=== PATIENT | male | born 1975 | race Caucasian/White ===

== ENCOUNTER → 2016-11-06 | Outpatient (CLI) | payer OTHER ==
[~2016-11-06] MED LIST: AMBI10TA PO; HYDRO50TAB PO; LUNE3TAB48 PO; MINI1CAP PO; PARO20TA2 PO; PARO40TA PO; PRAZ2CAP PO; Patient Own Medication PO
--- NOTE | 2016-11-06 08:33 | REP ---
MR THORACIC SPINE WITHOUT CONTRAST: HISTORY: Thoracic pain. There is no disc bulge or herniation. The spinal canal and the neural foramina are patent. The spinal cord is normal in signal intensity. There is no intradural extramedullary lesion. 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 Increased signal intensity on T2-weighted images is present in the endplates of several lower thoracic vertebral bodies. This represents degenerative change. IMPRESSION: There is no disc bulge or herniation. Signed by Curt Dailey MD 11/06/2016 08:34 A
== END ==
LOC: M RAD 06:54
PROVIDERS: ATTEND Anesthesiology
DX: Z01.818 Encounter for other preprocedural examination (principal); M54.6 Pain in thoracic spine

== ENCOUNTER → 2016-11-07 | Outpatient (CLI) | payer OTHER ==
--- NOTE | 2016-11-10 01:52 | ECWPNPC ---
PATIENT NAME: ALLY VILLANUEVA : 1975 GENDER: MALE VISIT DATE: 11/07/2016 DISCHARGE DATE: 11/07/16 0939 VISIT LOCKED DATE TIME: PHYSICIAN: ESTEBAN SCHNEIDER RESOURCE: ESTEBAN SCHNEIDER REASON FOR APPOINTMENT 1. LOW BACK PAIN HISTORY OF PRESENT ILLNESS HISTORY OF PRESENT ILLNESS: PAIN THE PATIENT DESCRIBES THE PAIN... 40 YEAR OLD MALE PATIENT WITH HISTORY OF CHRONIC LOW BACK PAIN. PATIENT DESCRIBES THE PAIN ACHING, TENDER, THROBBING, AND HAVING IT ALL THE TIME WITH A PAIN SCORE OF 7/10. PATIENT STATES THAT AT THIS TIME HE IS NOT TAKING ANYTHING FOR PAIN DUE TO TYLENOL AND IBUPROFEN NOT HELPING WITH THE PAIN. MR. VILLANUEVA IS GOING TO SEE DR. WARD ON November TO HAVE HIS PSYCHOLOGICAL EVALUATION DONE FOR THE DCS TRIAL. PATIENT EXPRESSES HE WOULD LIKE TO MOVE FORWARD WITH THE TRIAL SOON POSSIBLE HE IS IN CONSTANT PAIN AND HAS NOT FOUND RELIEF FROM ANYTHING AT THIS TIME. PATIENT DENIES UNEXPLAINABLE WEIGHT LOSS, FEVER, CHILLS, NEW CHANGES ON HIS URINARY OR BOWEL CONTROL. FALL RISK SCREENING: SCREENING :NO FALLS IN THE PAST YEAR CURRENT MEDICATIONS TAKING PRAZOSIN HCL 5 MG CAPSULE ORALLY ONCE A DAY AT BEDTIME, NOTES: 09/24/16 2100 TAKING LISINOPRIL 5 MG TABLET ORALLY DAILY, NOTES: 09/24/16 0600 TAKING GABAPENTIN 300 MG TABLET 1 TABLET ORALLY DAILY, NOTES: 09/24/16 2100 TAKING CYMBALTA 20 MG CAPSULE DELAYED RELEASE PARTICLES 2 CAPSULE ORALLY ONCE A DAY TAKING SEROQUEL 25 MG TABLET 1 TABLET ORALLY ONCE A DAY DISCONTINUED AMITRIPTYLINE HCL 25 MG TABLET 1 TABLET ORALLY ONCE A DAY AT BEDTIME DISCONTINUED CLONIDINE HCL ER 0.1 MG TABLET EXTENDED RELEASE 12 HOUR 1 TABLET AT BEDTIME ORALLY ONCE A DAY MEDICATION LIST REVIEWED AND RECONCILED WITH THE PATIENT PAST MEDICAL HISTORY HTN 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 SOCIAL HISTORY GENERAL: TOBACCO USE ARE YOU A:NONSMOKER LEARNING BARRIERS / SPECIAL NEEDS ORIENTED TO PLAN OF CARE: PATIENT, PAIN MANAGEMENT PATIENT, ORIENTED TO PLAN OF CARE: PATIENT, PAIN MANAGEMENT PATIENT. NEW PATIENT PAIN DIARY TODAY'S VISITNOTES FROM 0-10, WHAT LEVEL IS YOUR PAIN TODAY?0 PAIN CLINIC PFS, CLERGY, PUBLIC HEALTH REFERRALS PFS REFERRAL NEEDED?NO CLERGY REFERRAL NEEDED?NO PUBLIC HEALTH REFERRAL NEEDED?NO WAS THE PROVIDER NOTIFIED OF ANY PERTINENT INFO?NO PFS REFERRAL NEEDED?NO CLERGY REFERRAL NEEDED?NO PUBLIC HEALTH REFERRAL NEEDED?NO WAS THE PROVIDER NOTIFIED OF ANY PERTINENT INFO?NO HOSPITALIZATION/MAJOR DIAGNOSTIC PROCEDURE NO HOSPITALIZATION HISTORY. REVIEW OF SYSTEMS CONSTITUTIONAL: ANY CHANGE IN YOUR MEDICAL CONDITION? NO . CHILLS NO . FEVER NO . INFECTION: DO YOU HAVE NEW INFECTIONS? NO . DO YOU HAVE HISTORY OF MRSA? NO . MUSCULOSKELETAL: ANY NEW PATTERNS OF PAIN OR NUMBNESS? YES, TINGLING DOWN BOTH ARMS, RIGHT ARM IS WORSE. . GASTROENTEROLOGY: ANY NEW CHANGE IN BOWEL CONTROL? NO . GENITOURINARY: ANY NEW CHANGE IN BLADDER CONTROL? NO . IS THERE A CHANCE YOU COULD BE ? NO . HEMATOLOGY/LYMPH: DO YOU TAKE ANY BLOOD THINNERS? (FOR EXAMPLE- COUMADIN, PLAVIX, AGGRENOX, PLATEL, PRADAXA, OR XARELTO) NO . WHEN WAS YOUR LAST DOSE? DATE: TIME: . NEUROLOGY: HAVE YOU FALLEN IN THE PAST 6 MONTHS? NO . ANY NEW EXTREMITY NUMBNESS OR WEAKNESS? NO . CARDIOLOGY: DO YOU HAVE A PACEMAKER OR DEFIBRILLATOR? NO . RESPIRATORY: HAVE YOU BEEN SICK IN THE PAST WEEK? YES, HAD A COLD . FEVER NO . FLU LIKE SYMPTOMS? NO . COUGH NO . INTEGUMENTARY: DO YOU HAVE ANY RASHES OR OPEN SORES? NO . ALLERGIC/IMMUNO: ARE YOU ALLERGIC TO SHELLFISH OR IV DYE? NO . ANY NEW ALLERGIES? NO . PSYCHIATRIC: DO YOU HAVE THOUGHTS OF HURTING YOURSELF OR SOMEONE ELSE? NO . ARE YOU ABUSED, NEGLECTED, OR IN AN UNSAFE ENVIRONMENT? NO . ENDOCRINOLOGY: ARE YOU DIABETIC? NO . OTHER: DO YOU NEED ANY PRESCRIPTIONS? NO . IF YES, PLEASE LIST: ____ . ANY NEW PROBLEMS WITH YOUR MEDICATIONS? NO . WHEN DID YOU LAST EAT? ____ . WHEN DID YOU LAST DRINK? ____ . WHAT DID YOU LAST DRINK? ____ . NAME OF PERSON DRIVING YOU HOME? ____ . DO YOU HAVE ANY OTHER QUESTIONS OR CONCERNS YES, REALLY COULD USE SOMETHING FOR PAIN. . REVIEWED BY: PROVIDER: ESTEBAN SCHNEIDER MD . VITAL SIGNS WT 190 LBS, HT 65 IN, BMI 31.61 INDEX, BP 145/101 MM HG, HR 87 /MIN, RR 16 /MIN, TEMP 97.5 F, OXYGEN SAT % 96%, NA INITIALS SC 08:52, REVIEWED BY: CMRN IS AWARE OF PT'S BPPT STATES THAT HE IS ON MEDS. HAS BEEN SICK AND TAKING COLD MEDS. CM. EXAMINATION : PATIENT IS ALERT O X 3 AND COOPERATIVE. PATIENT HAS TENDERNESS IN THE LOWER BACK AND PARASPINAL MUSCLE GROUP AND IN THE CERVICAL AREA AND PARASPINAL MUSCLE GROUP. BANDS OF TISSUE, RESTRICTION OF MOVEMENT, AND MRI OF CERVICAL SPINE ON 12/12/14 SHOW DISC PROTRUSIONS AND STENOSIS AT C5-C6 AND C6-C7. MRI OF THE LUMBAR SPINE DONE ON 03/08/16 SHOW DISC BULGE AT L4-L5. THORACIC MRI DONE ON 11/06/15 SHOWS ADEQUATE ROOM FOR THE LEADS TO PASS THROUGH. ASSESSMENTS INTERVERTEBRAL DISC DISORDERS WITH RADICULOPATHY, LUMBAR REGION - M51.16 (PRIMARY) MYALGIA - M79.1 TREATMENT INTERVERTEBRAL DISC DISORDERS WITH RADICULOPATHY, LUMBAR REGION START CELEBREX CAPSULE, 200 MG, 1 CAPSULE, ORALLY, ONCE A DAY FOR PAIN, 30 DAY(S), 30, REFILLS 0 NOTES: TRIGGER POINT INJECTION MATERIAL WAS PRINTED,TRIGGER POINT INJECTION: YOUR EXPERIENCE MATERIAL WAS PRINTED. CLINICAL NOTES: WE DISCUSSED SEVERAL ISSUES WITH MR. VILLANUEVA'S PAIN MANAGEMENT CASE. AT THIS TIME THE PATIENT WILL BEGIN USING CELEBREX TO AID IN PAIN RELIEF, PATIENT WAS ADVISED TO STOP THE MEDICATION IF IT DOES NOT AID IN PAIN RELIEF. I WOULD LIKE TO SPEAK WITH THE PATIENT'S BEHAVIORAL HEALTH DOCTOR TO DISCUSS INCREASING THE CYMBALTA TO 30 MG TWICE A DAY AND INCREASING THE GABAPENTIN TO AID IN PAIN RELIEF. WE WILL ALSO BE MOVING FORWARD WITH THE DCS TRIAL. AT THIS TIME WE ARE JUST WAITING FOR THE PATIENT TO RECEIVE A PSYCHOLOGICAL EVALUATION. DUE TO THE SPASTICITY AND TIGHTNESS IN THE PATIENT'S BACK I BELIEVE THE PATIENT WOULD BENEFIT FROM TRIGGER POINT INJECTIONS. WE DISCUSSED THE RISKS, BENEFITS, AND ALTNERATIVES TO THE INJECTION AND THE PATIENT WOULD LIKE TO PROCEED. PATIENT WILL RETURN TO THE CLINIC IN 3 WEEKS TO FURTHER DISCUSS MEDICATIONS. INSTRUCTIONS WERE GIVEN, QUESTIONS WERE ANSWERED, PATIENT REPORTS UNDERSTANDING AND AGREES WITH THE PLAN. I, KANDI OWENS, DOCUMENTED THE ABOVE INFORMATION ACTING A SCRIBE FOR DR. SCHNEIDER. I HAVE REVIEWED THE ABOVE DOCUMENT, WRITTEN BY KANDI SHAMPINE SCRIBE AND I VERIFY THAT IT IS ACCURATE. PREVENTIVE MEDICINE PAIN CLINIC TEACHING: MEDICATIONS PT DECLINED INFORMATION ON CELEBREX. PROCEDURE CODES FA211 ESTABILISHED PATIENT [facility] FACILITY CHARGE G8427 DOC MEDS VERIFIED W/PT OR RE G6530 PAIN ASSESS POS TOOL F/U PLAN DOC FOLLOW UP 3 WEEKS ELECTRONICALLY SIGNED BY ESTEBAN SCHNEIDER MD ON 11/09/2016 AT 06:53 PM EST DISCLAIMER : THIS IS A VISIT SUMMARY EXTRACTED FROM THE [employer] CHART. IT IS NOT A COPY OF THE [employer] PROGRESS NOTE. BRYON
== END ==
LOC: M PAIN 08:40
PROVIDERS: ATTEND Anesthesiology
DX: Z09 Encounter for follow-up examination after completed treatment for conditions other than malignant neoplasm (principal); G89.29 Other chronic pain; M51.16 Intervertebral disc disorders with radiculopathy, lumbar region; M79.1 Myalgia; I10 Essential (primary) hypertension; G56.20 Lesion of ulnar nerve, unspecified upper limb; R51 Headache; M54.2 Cervicalgia; G47.30 Sleep apnea, unspecified; F43.10 Post-traumatic stress disorder, unspecified; F41.9 Anxiety disorder, unspecified; F32.9 Major depressive disorder, single episode, unspecified; Z88.8 Allergy status to other drugs, medicaments and biological substances; Z79.899 Other long term (current) drug therapy

== ENCOUNTER → 2016-11-27 | Outpatient (CLI) | payer OTHER ==
--- NOTE | 2016-12-05 01:44 | ECWPNPC ---
PATIENT NAME: ALYL VILLANUEVA : 1975 GENDER: MALE VISIT DATE: 11/27/2016 DISCHARGE DATE: 11/27/16 1449 VISIT LOCKED DATE TIME: PHYSICIAN: ESTEBAN SCHNEIDER RESOURCE: ESTEBAN SCHNEIDER REASON FOR APPOINTMENT 1. BACK HISTORY OF PRESENT ILLNESS HISTORY OF PRESENT ILLNESS: PAIN THE PATIENT DESCRIBES THE PAIN... 41 YEAR OLD MALE PATIENT WITH HISTORY OF CHRONIC BACK PAIN. PATIENT DESCRIBES THE PAIN HAVING IT ALL THE TIME WITH A PAIN SCORE OF 7/10. PATIENT STATES THAT HE SLEEP BETTER BUT IS STILL WAKING UP AT NIGHT. PATIENT REPORTS THAT HE HAS AN UP COMING APPOINTMENT WITH DR. WARD ON TO HAVE HIS PSYCHOLOGICAL EVALUATION COMPLETED FOR THE DCS TRIAL. PATIENT EXPRESSED THAT HE WOULD LIKE TO MOVE FORWARD WITH THE TRIAL HE IS IN CONSTANT PAIN AND HAS NOT FOUND RELIEF FROM ANYTHING AT THIS TIME. PATIENT DENIES UNEXPLAINABLE WEIGHT LOSS, FEVER, CHILLS, NEW CHANGES ON HIS URINARY OR BOWEL CONTROL. 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 NEW PATIENT PAIN DIARY TODAY'S VISITNOTES FROM 0-10, WHAT LEVEL IS YOUR PAIN TODAY?0 PAIN CLINIC PFS, CLERGY, PUBLIC HEALTH REFERRALS PFS REFERRAL NEEDED?NO CLERGY REFERRAL NEEDED?NO PUBLIC HEALTH REFERRAL NEEDED?NO WAS THE PROVIDER NOTIFIED OF ANY PERTINENT INFO?NO PFS REFERRAL NEEDED?NO CLERGY REFERRAL NEEDED?NO PUBLIC HEALTH REFERRAL NEEDED?NO WAS THE PROVIDER NOTIFIED OF ANY PERTINENT INFO?NO REVIEW OF SYSTEMS CONSTITUTIONAL: ANY CHANGE IN YOUR MEDICAL CONDITION? NO . CHILLS NO . FEVER NO . INFECTION: DO YOU HAVE NEW INFECTIONS? NO . DO YOU HAVE HISTORY OF MRSA? NO . MUSCULOSKELETAL: ANY NEW PATTERNS OF PAIN OR NUMBNESS? YES PT REPORTS INCREASED IN BOTH INTENSITY AND DURATION OF LOWER BACK PAIN, AND EXTENDS THROUGH BUTTOCKS NOW . GASTROENTEROLOGY: ANY NEW CHANGE IN BOWEL CONTROL? NO . GENITOURINARY: ANY NEW CHANGE IN BLADDER CONTROL? NO . IS THERE A CHANCE YOU COULD BE ? NO . HEMATOLOGY/LYMPH: DO YOU TAKE ANY BLOOD THINNERS? (FOR EXAMPLE- COUMADIN, PLAVIX, AGGRENOX, PLATEL, PRADAXA, OR XARELTO) NO . WHEN WAS YOUR LAST DOSE? DATE: TIME: . NEUROLOGY: HAVE YOU FALLEN IN THE PAST 6 MONTHS? NO . ANY NEW EXTREMITY NUMBNESS OR WEAKNESS? NO . CARDIOLOGY: DO YOU HAVE A PACEMAKER OR DEFIBRILLATOR? NO . RESPIRATORY: HAVE YOU BEEN SICK IN THE PAST WEEK? NO . FEVER NO . FLU LIKE SYMPTOMS? NO . COUGH NO . INTEGUMENTARY: DO YOU HAVE ANY RASHES OR OPEN SORES? NO . ALLERGIC/IMMUNO: ARE YOU ALLERGIC TO SHELLFISH OR IV DYE? NO . ANY NEW ALLERGIES? NO . PSYCHIATRIC: DO YOU HAVE THOUGHTS OF HURTING YOURSELF OR SOMEONE ELSE? NO . ARE YOU ABUSED, NEGLECTED, OR IN AN UNSAFE ENVIRONMENT? NO . ENDOCRINOLOGY: ARE YOU DIABETIC? NO . OTHER: DO YOU NEED ANY PRESCRIPTIONS? NO . IF YES, PLEASE LIST: ____ . ANY NEW PROBLEMS WITH YOUR MEDICATIONS? NO . WHEN DID YOU LAST EAT? ____ . WHEN DID YOU LAST DRINK? ____ . WHAT DID YOU LAST DRINK? ____ . NAME OF PERSON DRIVING YOU HOME? ____ . DO YOU HAVE ANY OTHER QUESTIONS OR CONCERNS NO . REVIEWED BY: PROVIDER: . VITAL SIGNS WT 198.4 LBS, HT 65 IN, BMI 33.01 INDEX, BP 125/83 MM HG, HR 83 /MIN, RR 16 /MIN, TEMP 98.8 F, OXYGEN SAT % 93%, SAFE IN ENV? (Y/N) YES, NA INITIALS SC13:[id number], REVIEWED BY: MYLES. EXAMINATION : PATIENT IS ALERT O X 3 AND COOPERATIVE. PATIENT HAS TENDERNESS IN THE LOWER BACK AND PARASPINAL MUSCLE GROUP AND IN THE CERVICAL AREA AND PARASPINAL MUSCLE GROUP. BANDS OF TISSUE, RESTRICTION OF MOVEMENT, AND MRI OF CERVICAL SPINE ON 12/12/14 SHOW DISC PROTRUSIONS AND STENOSIS AT C5-C6 AND C6-C7. MRI OF THE LUMBAR SPINE DONE ON 03/08/16 SHOW DISC BULGE AT L4-L5. THORACIC MRI DONE ON 11/06/15 SHOWS ADEQUATE ROOM FOR THE LEADS TO PASS THROUGH. ASSESSMENTS INTERVERTEBRAL DISC DISORDERS WITH RADICULOPATHY, LUMBAR REGION - M51.16 (PRIMARY) MYALGIA - M79.1 TREATMENT INTERVERTEBRAL DISC DISORDERS WITH RADICULOPATHY, LUMBAR REGION NOTES: WE DISCUSSED SEVERAL ISSUES WITH MR. VILLANUEVA'S PAIN MANAGEMENT CASE. AT THIS TIME THE PATIENT WILL START ON TIZANIDINE FOR HIS MUSCLE SPASM. WE WILL ALSO BE MOVING FORWARD WITH THE DCS TRIAL. AT THIS TIME WE ARE JUST WAITING FOR THE PATIENT TO RECEIVE A PSYCHOLOGICAL EVALUATION. DUE TO THE SPASTICITY AND TIGHTNESS IN THE PATIENT'S BACK I BELIEVE THE PATIENT WOULD BENEFIT FROM TRIGGER POINT INJECTIONS. WE DISCUSSED THE RISKS, BENEFITS, AND ALTERNATIVES TO THE INJECTION AND THE PATIENT WOULD LIKE TO PROCEED. PATIENT TO FOLLOW UP WITH ME IN 2 TO 3 WEEKS FOR HIS MEDICATIONS. INSTRUCTIONS WERE GIVEN, QUESTIONS WERE ANSWERED, PATIENT REPORTS UNDERSTANDING AND AGREES WITH THE PLAN. I, SHAREE GUERRERO, DOCUMENTED THE ABOVE INFORMATION ACTING A SCRIBE FOR DR. SCHNEIDER. I HAVE REVIEWED THE ABOVE DOCUMENT, WRITTEN BY SHAREE GUERRERO SCRIBJas AND I VERIFY THAT IT IS ACCURATE. OTHERS START TIZANIDINE HCL TABLET, 2 MG, 1 TABLET NEEDED, ORALLY FOR SPASMSM AND PAIN, THREE TIMES A DAY, 30 DAY(S), 90 TABLET, REFILLS 1 PROCEDURE CODES FA211 ESTABILISHED PATIENT [facility] FACILITY CHARGE G8730 PAIN ASSESS POS TOOL F/U PLAN DOC G8427 DOC MEDS VERIFIED W/PT OR RE FOLLOW UP 2 WEEKS ELECTRONICALLY SIGNED BY ESTEBAN SCHNEIDER MD ON 12/04/2016 AT 01:42 PM EST DISCLAIMER : THIS IS A VISIT SUMMARY EXTRACTED FROM THE [employer] CHART. IT IS NOT A COPY OF THE [employer] PROGRESS NOTE. MTDD
== END ==
LOC: M PAIN 10:00
PROVIDERS: ATTEND Anesthesiology
DX: Z09 Encounter for follow-up examination after completed treatment for conditions other than malignant neoplasm (principal); G89.29 Other chronic pain; M51.16 Intervertebral disc disorders with radiculopathy, lumbar region; M79.1 Myalgia; I10 Essential (primary) hypertension; R51 Headache; G47.30 Sleep apnea, unspecified; F43.10 Post-traumatic stress disorder, unspecified; F41.9 Anxiety disorder, unspecified; F32.9 Major depressive disorder, single episode, unspecified; Z88.5 Allergy status to narcotic agent; Z79.899 Other long term (current) drug therapy

== ENCOUNTER → 2016-12-10 | Outpatient (CLI) | payer OTHER ==
--- NOTE | 2016-12-12 00:33 | ECWPNPC ---
PATIENT NAME: ALLY VILLANUEVA : 1975 GENDER: MALE VISIT DATE: 12/10/2016 DISCHARGE DATE: 12/10/16 1110 VISIT LOCKED DATE TIME: PHYSICIAN: ESTEBAN SCHNEIDER RESOURCE: ESTEBAN SCHNEIDER REASON FOR APPOINTMENT 1. BACK PAIN HISTORY OF PRESENT ILLNESS HISTORY OF PRESENT ILLNESS: PAIN THE PATIENT DESCRIBES THE PAIN... 41 YEAR OLD MALE PATIENT WITH HISTORY OF CHRONIC BACK PAIN. PATIENT DESCRIBES THE PAIN BURNING, SHARP, STABBING, AND HAVING IT ALL THE TIME WITH A PAIN SCORE OF 8/10. PATIENT STATES THAT HE SNEEZED ON SATURDAY NIGHT AND HEARD HIS BACK POP AND SINCE THEN HE HAS BEEN IN SEVERE PAIN. PATIENT IS UNABLE TO STAND UP STRAIGHT BECAUSE HE STATES IF HE DOES HIS BACK WILL LOCK UP. PATIENT ALSO STATES HAVING A NEW PAIN IN THE FRONT OF THE LEFT LEG. MR. VILLANUEVA IS NOT USING ANY MEDICATION TO AID IN PAIN RELIEF DUE TO NOT AIDING IN PAIN RELIEF. MR. VILLANUEVA REPORTS HAVING HIS PSYCHOLOGICAL EVALUATION DONE RECENTLY. PATIENT DENIES UNEXPLAINABLE WEIGHT LOSS, FEVER, CHILLS, NEW CHANGES ON HIS URINARY OR BOWEL CONTROL. FALL RISK SCREENING: SCREENING :NO FALLS IN THE PAST YEAR CURRENT MEDICATIONS TAKING PRAZOSIN HCL 5 MG CAPSULE 2 CAPSULES ORALLY ONCE A DAY AT BEDTIME, NOTES: 09/24/16 2100 TAKING LISINOPRIL 10 MG TABLET ORALLY DAILY, NOTES: 09/24/16 0600 TAKING GABAPENTIN 600 MG TABLET 1 TABLET ORALLY TWICE A DAY, NOTES: 09/24/16 2100 TAKING CYMBALTA 60 MG CAPSULE DELAYED RELEASE PARTICLES 1 CAPSULE ORALLY ONCE A DAY TAKING SEROQUEL 25 MG TABLET 1 TABLET ORALLY ONCE A DAY TAKING CELEBREX 200 MG CAPSULE 1 CAPSULE ORALLY ONCE A DAY FOR PAIN NOT-TAKING TIZANIDINE HCL 2 MG TABLET 1 TABLET NEEDED ORALLY FOR SPASMSM AND PAIN THREE TIMES A DAY MEDICATION LIST REVIEWED AND RECONCILED WITH THE PATIENT PAST MEDICAL HISTORY HTN 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 SOCIAL HISTORY GENERAL: TOBACCO USE ARE YOU A:NONSMOKER LEARNING BARRIERS / SPECIAL NEEDS ORIENTED TO PLAN OF CARE: PATIENT, PAIN MANAGEMENT PATIENT, ORIENTED TO PLAN OF CARE: PATIENT, PAIN MANAGEMENT PATIENT. NEW PATIENT PAIN DIARY TODAY'S VISITNOTES FROM 0-10, WHAT LEVEL IS YOUR PAIN TODAY?0 PAIN CLINIC PFS, CLERGY, PUBLIC HEALTH REFERRALS PFS REFERRAL NEEDED?NO CLERGY REFERRAL NEEDED?NO PUBLIC HEALTH REFERRAL NEEDED?NO WAS THE PROVIDER NOTIFIED OF ANY PERTINENT INFO?NO PFS REFERRAL NEEDED?NO CLERGY REFERRAL NEEDED?NO PUBLIC HEALTH REFERRAL NEEDED?NO WAS THE PROVIDER NOTIFIED OF ANY PERTINENT INFO?NO HOSPITALIZATION/MAJOR DIAGNOSTIC PROCEDURE DENIES PAST HOSPITALIZATION REVIEW OF SYSTEMS CONSTITUTIONAL: ANY CHANGE IN YOUR MEDICAL CONDITION? NO . CHILLS NO . FEVER NO . INFECTION: DO YOU HAVE NEW INFECTIONS? NO . DO YOU HAVE HISTORY OF MRSA? NO . MUSCULOSKELETAL: ANY NEW PATTERNS OF PAIN OR NUMBNESS? YES,SNEEZED ON SATURDAY, BACK &QUOT;POPPED&QUOT;, PAIN MUCH WORSE AND DOWN LEFT LEG SINCE THEN . GASTROENTEROLOGY: ANY NEW CHANGE IN BOWEL CONTROL? NO . GENITOURINARY: ANY NEW CHANGE IN BLADDER CONTROL? NO . IS THERE A CHANCE YOU COULD BE ? NO . HEMATOLOGY/LYMPH: DO YOU TAKE ANY BLOOD THINNERS? (FOR EXAMPLE- COUMADIN, PLAVIX, AGGRENOX, PLATEL, PRADAXA, OR XARELTO) NO . WHEN WAS YOUR LAST DOSE? DATE: TIME: . NEUROLOGY: HAVE YOU FALLEN IN THE PAST 6 MONTHS? NO . ANY NEW EXTREMITY NUMBNESS OR WEAKNESS? NO . CARDIOLOGY: DO YOU HAVE A PACEMAKER OR DEFIBRILLATOR? NO . RESPIRATORY: HAVE YOU BEEN SICK IN THE PAST WEEK? NO . FEVER NO . FLU LIKE SYMPTOMS? NO . COUGH NO . INTEGUMENTARY: DO YOU HAVE ANY RASHES OR OPEN SORES? NO . ALLERGIC/IMMUNO: ARE YOU ALLERGIC TO SHELLFISH OR IV DYE? NO . ANY NEW ALLERGIES? NO . PSYCHIATRIC: DO YOU HAVE THOUGHTS OF HURTING YOURSELF OR SOMEONE ELSE? NO . ARE YOU ABUSED, NEGLECTED, OR IN AN UNSAFE ENVIRONMENT? NO . ENDOCRINOLOGY: ARE YOU DIABETIC? NO . OTHER: DO YOU NEED ANY PRESCRIPTIONS? YES, MUSCLES RELAXERS NOT WORKING . IF YES, PLEASE LIST: ____ . ANY NEW PROBLEMS WITH YOUR MEDICATIONS? NO . WHEN DID YOU LAST EAT? ____ . WHEN DID YOU LAST DRINK? ____ . WHAT DID YOU LAST DRINK? ____ . NAME OF PERSON DRIVING YOU HOME? ____ . DO YOU HAVE ANY OTHER QUESTIONS OR CONCERNS NO . REVIEWED BY: PROVIDER: ESTEBAN SCHNEIDER MD . VITAL SIGNS WT 199.4 LBS, HT 65 IN, BMI 33.18 INDEX, BP 142/89 MM HG, HR 110 /MIN, RR 18 /MIN, TEMP 98.4 F, OXYGEN SAT % 94%, NA INITIALS SC10:20, REVIEWED BY: LS. EXAMINATION : PATIENT IS ALERT O X 3 AND COOPERATIVE. MR. VILLANUEVA UNABLE TO STRAIGHTEN BACK AND STAYS IN A FLEXED POSITION. PATIENT HAS TENDERNESS IN THE LOWER BACK AND PARASPINAL MUSCLE GROUP AND IN THE CERVICAL AREA AND PARASPINAL MUSCLE GROUP. BANDS OF TISSUE, RESTRICTION OF MOVEMENT, AND PRESENCE OF TRIGGER POINTS IN THE BACK. ALSO TENDERNESS AT THE RIGHT AND LEFT SACROILIAC JOINTS. LEFT LEG IS WEAKER THEN THE RIGHT AT EXTENSION AND FLEXION. MRI OF CERVICAL SPINE ON 12/12/14 SHOW DISC PROTRUSIONS AND STENOSIS AT C5-C6 AND C6-C7. MRI OF THE LUMBAR SPINE DONE ON 03/08/16 SHOW DISC BULGE AT L4-L5. THORACIC MRI DONE ON 11/06/15 SHOWS ADEQUATE ROOM FOR THE LEADS TO PASS THROUGH. 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 VILLANUEVA'S PAIN MANAGEMENT CASE. AT THIS TIME THE PATIENT WILL USE TORODOL AND SOMA FOR THE NEXT FIVE DAYS DUE TO THE SEVERE PAIN AND MUSCLE SPASMS. PATIENT DENIES ABUSE OF ANY MEDICATION, DENIES USE OF ILLEGAL SUBSTANCES, AND STATES THAT HE IS ONLY USING THE MEDICATION FOR PAIN MANAGEMENT. PATIENT WILL BE RECEIVING TRIGGER POINT INJECTIONS TOMORROW WHICH SHOULD AID IN PAIN RELIEF FOR THE PATIENT WELL. I WOULD LIKE THE PATIENT TO RETURN TO THE CLINIC IN 1 WEEK TO SEE PABLO ROWLAND IF THE PAIN IS STILL SEVERE. AT THAT POINT A MRI MAY BENEFIT THE PATIENT DUE TO SNEEZING CAUSING THE PATIENT NEW PAIN. WE DISCUSSED THE RISKS, BENEFITS, AND ALTERNATIVES OF THE INJECTION AND THE PATIENT WOULD LIKE TO PROCEED AT THIS TIME. I MAY CONSIDER A BILATERAL SACROILIAC JOINT BLOCK. INSTRUCTIONS WERE GIVEN, QUESTIONS WERE ANSWERED, PATIENT REPORTS UNDERSTANDING AND AGREES WITH THE PLAN. MR. VILLANUEVA RECEIVED A PSYCHOLOGICAL EVALUATION AND ONCE I REVIEW THE NOTES I WILL REQUEST AUTHORIZATION FOR THE DCS TRIAL. I, KANDI OWENS, DOCUMENTED THE ABOVE INFORMATION ACTING A SCRIBE FOR DR. SCHNEIDER. I HAVE REVIEWED THE ABOVE DOCUMENT, WRITTEN BY KANDI BRARIBJas AND I VERIFY THAT IT IS ACCURATE. PROCEDURE CODES FA211 ESTABILISHED PATIENT [facility] FACILITY CHARGE G8427 DOC MEDS VERIFIED W/PT OR RE G8730 PAIN ASSESS POS TOOL F/U PLAN DOC FOLLOW UP TPI ELECTRONICALLY SIGNED BY ESTEBAN SCHNEIDER MD ON 12/11/2016 AT 01:10 PM EST DISCLAIMER : THIS IS A VISIT SUMMARY EXTRACTED FROM THE [employer] CHART. IT IS NOT A COPY OF THE [employer] PROGRESS NOTE. BRYON
== END ==
LOC: M PAIN 10:20
PROVIDERS: ATTEND Anesthesiology
DX: M51.16 Intervertebral disc disorders with radiculopathy, lumbar region (principal); M46.1 Sacroiliitis, not elsewhere classified; M54.2 Cervicalgia; G89.29 Other chronic pain; Z79.899 Other long term (current) drug therapy; I10 Essential (primary) hypertension; F43.10 Post-traumatic stress disorder, unspecified; F41.9 Anxiety disorder, unspecified; F32.9 Major depressive disorder, single episode, unspecified; R51 Headache; Z88.6 Allergy status to analgesic agent

== ENCOUNTER → 2016-12-11 | Outpatient (CLI) | payer OTHER ==
[~2016-12-11] MED LIST changes: +BUPIVACAINE HCL 0.25% 10 ML VIAL As Ordered ONE; +BUPIVACAINE HCL 0.25% 30 ML VIAL As Ordered ONE; +TRIAMCINOLONE ACETONIDE SUSP 40 MG/ML VIAL (J3301) As Ordered ONE; +diazePAM 5 MG TAB As Ordered ONE; +oxyCODONE 5MG TAB As Ordered ONE
--- NOTE | 2016-12-15 23:31 | ECWPNPC ---
PATIENT NAME: ALLY VILLANUEVA : 1975 GENDER: MALE VISIT DATE: 12/11/2016 DISCHARGE DATE: 12/11/16 1316 VISIT LOCKED DATE TIME: PHYSICIAN: ESTEBAN SCHNEIDER RESOURCE: ESTEBAN SCHNEIDER REASON FOR APPOINTMENT 1. TPI HISTORY OF PRESENT ILLNESS HISTORY OF PRESENT ILLNESS: PAIN THE PATIENT DESCRIBES THE PAIN... FALL RISK SCREENING: SCREENING :NO FALLS IN THE PAST YEAR CURRENT MEDICATIONS TAKING PRAZOSIN HCL 5 MG CAPSULE 2 CAPSULES ORALLY ONCE A DAY AT BEDTIME, NOTES: 12/10/16 1900 TAKING LISINOPRIL 10 MG TABLET ORALLY DAILY, NOTES: 12/11/16 0700 TAKING GABAPENTIN 600 MG TABLET 1 TABLET ORALLY TWICE A DAY, NOTES: 12/11/16 0700 TAKING CYMBALTA 60 MG CAPSULE DELAYED RELEASE PARTICLES 1 CAPSULE ORALLY ONCE A DAY, NOTES: 0700 TAKING SEROQUEL 25 MG TABLET 1 TABLET ORALLY ONCE A DAY, NOTES: 12/10/16 1900 TAKING SOMA 350 MG TABLET 1 TABLET NEEDED ORALLY Q 6 HRS PRN FOR SPASMS AND PAIN MDD4, NOTES: 12/10/16 1700 TAKING KETOROLAC TROMETHAMINE 10 MG TABLET 1 TABLET WITH FOOD OR MILK NEEDED ORALLY EVERY 6 HRS PRN FOR PAIN MDD4, NOTES: 12/10/16 1800 NOT-TAKING CELEBREX 200 MG CAPSULE 1 CAPSULE ORALLY ONCE A DAY FOR PAIN NOT-TAKING TIZANIDINE HCL 2 MG TABLET 1 TABLET NEEDED ORALLY FOR SPASMSM AND PAIN THREE TIMES A DAY MEDICATION LIST REVIEWED AND RECONCILED WITH THE PATIENT PAST MEDICAL HISTORY HTN 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 LEARNING BARRIERS / SPECIAL NEEDS ORIENTED TO PLAN OF CARE: PATIENT, PAIN MANAGEMENT PATIENT, ORIENTED TO PLAN OF CARE: PATIENT, PAIN MANAGEMENT PATIENT. NEW PATIENT PAIN DIARY TODAY'S VISITNOTES FROM 0-10, WHAT LEVEL IS YOUR PAIN TODAY?0 PAIN CLINIC PFS, CLERGY, PUBLIC HEALTH REFERRALS PFS REFERRAL NEEDED?NO CLERGY REFERRAL NEEDED?NO PUBLIC HEALTH REFERRAL NEEDED?NO WAS THE PROVIDER NOTIFIED OF ANY PERTINENT INFO?NO PFS REFERRAL NEEDED?NO CLERGY REFERRAL NEEDED?NO PUBLIC HEALTH REFERRAL NEEDED?NO WAS THE PROVIDER NOTIFIED OF ANY PERTINENT INFO?NO REVIEW OF SYSTEMS CONSTITUTIONAL: ANY CHANGE IN YOUR MEDICAL CONDITION? NO . CHILLS NO . FEVER NO . INFECTION: DO YOU HAVE NEW INFECTIONS? NO . DO YOU HAVE HISTORY OF MRSA? NO . MUSCULOSKELETAL: ANY NEW PATTERNS OF PAIN OR NUMBNESS? NO . GASTROENTEROLOGY: ANY NEW CHANGE IN BOWEL CONTROL? NO . GENITOURINARY: ANY NEW CHANGE IN BLADDER CONTROL? NO . IS THERE A CHANCE YOU COULD BE ? NO . HEMATOLOGY/LYMPH: DO YOU TAKE ANY BLOOD THINNERS? (FOR EXAMPLE- COUMADIN, PLAVIX, AGGRENOX, PLATEL, PRADAXA, OR XARELTO) NO . WHEN WAS YOUR LAST DOSE? DATE: TIME: . NEUROLOGY: HAVE YOU FALLEN IN THE PAST 6 MONTHS? NO . ANY NEW EXTREMITY NUMBNESS OR WEAKNESS? NO . CARDIOLOGY: DO YOU HAVE A PACEMAKER OR DEFIBRILLATOR? NO . RESPIRATORY: HAVE YOU BEEN SICK IN THE PAST WEEK? NO . FEVER NO . FLU LIKE SYMPTOMS? NO . COUGH NO . INTEGUMENTARY: DO YOU HAVE ANY RASHES OR OPEN SORES? NO . ALLERGIC/IMMUNO: ARE YOU ALLERGIC TO SHELLFISH OR IV DYE? NO . ANY NEW ALLERGIES? NO . PSYCHIATRIC: DO YOU HAVE THOUGHTS OF HURTING YOURSELF OR SOMEONE ELSE? NO . ARE YOU ABUSED, NEGLECTED, OR IN AN UNSAFE ENVIRONMENT? NO . ENDOCRINOLOGY: ARE YOU DIABETIC? NO . OTHER: DO YOU NEED ANY PRESCRIPTIONS? NO . IF YES, PLEASE LIST: ____ . ANY NEW PROBLEMS WITH YOUR MEDICATIONS? NO . WHEN DID YOU LAST EAT? ____12/10/161999 . WHEN DID YOU LAST DRINK? ____12/11/16 0945 . WHAT DID YOU LAST DRINK? ____WATER . NAME OF PERSON DRIVING YOU HOME? ____WIFE, DAHIANA . DO YOU HAVE ANY OTHER QUESTIONS OR CONCERNS NO . REVIEWED BY: PROVIDER: . VITAL SIGNS WT 199.4 LBS, HT 65 IN, BMI 33.18 INDEX, BP 158/89 MM HG, HR 82 /MIN, RR 16 /MIN, TEMP 97.3 F, OXYGEN SAT % 93%, NA INITIALS SC11:08, REVIEWED BY: AD. ASSESSMENTS MYALGIA - M79.1 (PRIMARY) PROCEDURES PN TRIGGER POINT INJECTION WITH STEROIDS PRE PROCEDURE DIAGNOSIS 1. MYALGIA 2. PAIN AT BILATERAL LOW BACK AREA POST PROCEDURE DIAGNOSIS 1. MYALGIA 2. PAIN AT BILATERAL LOW BACK AREA PROCEDURE TRIGGER POINT INJECTION AT BILATERAL LOW BACK AREA SURGEON DR. ESTEBAN SCHNEIDER SALMON TROLL FISHER NONE ANESTHESIA LOCAL PRE PROCEDURE NOTE THE PATIENT HAS A HISTORY OF CHRONIC PAIN AT THE RIGHT AND LEFT LOW BACK AREA. I EVALUATE THE PATIENT AND REVIEWED THE CHART. THERE IS EVIDENCE OF BANDS OF TISSUE WITH RESTRICTION OF MOVEMENT AND PRESENCE OF TRIGGER POINT AT THE AFFECTED AREA. I WENT OVER THE RISKS, ALTERNATIVES, AND BENEFITS ASSOCIATED WITH THIS PROCEDURE. THE PATIENT WOULD LIKE TO PROCEED AND GIVE CONSENT TO PERFORMED THE PROCEDURE. THE PATIENT DENIES UNEXPLAINABLE WEIGHT LOSS, FEVER, CHILLS, OR NEW CHANGES IN URINARY OR BOWEL CONTROL DESCRIPTION OF PROCEDURE THE PATIENT WAS BROUGHT TO THE PROCEDURE ROOM AND PLACED IN THE SITTING POSITION. THE AREA WAS CLEANED WITH ALCOHOL. THE PROCEDURE WAS DONE USING ASEPTIC STERILE TECHNIQUE. I CHECKED LATERALITY AND THE LEVEL WHERE THE PROCEDURE WAS GOING TO BE PERFORMED WITH THE PATIENT AND THE SUPPORTING STAFF AT THE MOMENT OF THE TIME OUT IN THE PROCEDURE ROOM. USING A 25-GAUGE NEEDLE, TRIGGER POINTS WERE INJECTED AT THE RIGHT AND LEFT LOW BACK AREA WITH A TOTAL OF 40 ML OF BUPIVACAINE 0.25% AND KENALOG 40 MG. THERE WAS NO EVIDENCE OF BLOOD, PARESTHESIA OR CEREBROSPINAL FLUID DURING THE PROCEDURE. THE PATIENT WAS SENT TO THE RECOVERY ROOM. THE PATIENT WAS MOVING THE EXTREMITIES AND DOING WELL. THERE WAS NO COMPLICATION DURING THE PROCEDURE POST PROCEDURE NOTE THE PATIENT WILL BE SEEN IN A FOLLOW UP IN THE NEXT FEW WEEKS. INSTRUCTIONS WERE GIVEN, QUESTIONS WERE ANSWERED, AND THE PATIENT EXPRESSED UNDERSTANDING AND AGREES WITH THE PLAN. INSTRUCTIONS WERE GIVEN, QUESTIONS WERE ANSWERED, PATIENT REPORTS UNDERSTANDING AND AGREES WITH THE PLAN. I, SHAREE GUERRERO, DOCUMENTED THE ABOVE INFORMATION ACTING A SCRIBE FOR DR. SCHNEIDER. I HAVE REVIEWED THE ABOVE DOCUMENT, WRITTEN BY SHAREE GUERRERO SCRIBJas AND I VERIFY THAT IT IS ACCURATE. PROCEDURE CODES 70852 INJ TRIGGER POINT /2 [facility] DISPOSITION & COMMUNICATION FOLLOW UP 3 WEEKS ELECTRONICALLY SIGNED BY ESTEBAN SCHNEIDER MD ON 12/15/2016 AT 09:17 PM EST DISCLAIMER : THIS IS A VISIT SUMMARY EXTRACTED FROM THE [employer] CHART. IT IS NOT A COPY OF THE [employer] PROGRESS NOTE. [facility]
== END ==
LOC: M PAIN 10:20
PROVIDERS: ATTEND Anesthesiology
DX: G89.29 Other chronic pain (principal); M54.5 Low back pain; M79.1 Myalgia; I10 Essential (primary) hypertension; G56.20 Lesion of ulnar nerve, unspecified upper limb; G54.0 Brachial plexus disorders; G47.30 Sleep apnea, unspecified; F43.10 Post-traumatic stress disorder, unspecified; F17.220 Nicotine dependence, chewing tobacco, uncomplicated; F41.9 Anxiety disorder, unspecified; F32.9 Major depressive disorder, single episode, unspecified; Z79.899 Other long term (current) drug therapy; Z88.5 Allergy status to narcotic agent
CPT/HCPCS: 20552; J3301

== ENCOUNTER → 2016-12-20 | Outpatient (CLI) | payer OTHER ==
[~2016-12-20] MED LIST changes: -BUPIVACAINE HCL 0.25% 10 ML VIAL As Ordered ONE; -BUPIVACAINE HCL 0.25% 30 ML VIAL As Ordered ONE; -TRIAMCINOLONE ACETONIDE SUSP 40 MG/ML VIAL (J3301) As Ordered ONE; -diazePAM 5 MG TAB As Ordered ONE; -oxyCODONE 5MG TAB As Ordered ONE
--- NOTE | 2016-12-20 23:30 | ECWPNPC ---
PATIENT NAME: ALLY VILLANUEVA : 1975 GENDER: MALE VISIT DATE: 12/20/2016 DISCHARGE DATE: 12/20/16 09 VISIT LOCKED DATE TIME: PHYSICIAN: EMILEE HOWARD RESOURCE: EMILEE HOWARD REASON FOR APPOINTMENT 1. BACK HISTORY OF PRESENT ILLNESS HISTORY OF PRESENT ILLNESS: HERE FOR F/U AND MANAGEMENT OF CHRONIC LBP AND BILAT. LEG PAIN.REPORTING LEFT ANTERIOR THIGH P YESTERDAYAIN.HAD TPI ON 12-11 TO LOW BACK WITH IMPROVEMENT X 2 DAYS POST PROCEDURE.HAS TRIALE MULTIPLE PROCEDURES TO INCLUDE LUMBAR FACET BLOCKS AND LESI WITHOUT IMPROVEMENT.HAD ACCUPUNCTURE TRIAL YESTERDAY WITHOUT IMPROVEMENT.HAS TRIED MASSAGE AND CHIROPRACTIC INTERVENTION WITHOUT IMPROVEMENT.RATING PAIN VAS 5/10.PAIN IS ALSO LOCATED IN NECK REGION.PAIN IS AGGREVATED BY PROLONGED STANDING OR SITTING.PAIN IS RLIEVED SOMEWHAT WITH REST,HEAT AND ELEVATING LEGS.TRIED SOMA LAST VISIT WITHOUT IMPROVEMENT.HAD CYMBALTA INCREASED TO 90MG YESTERDAY.HE IS IN PROCESS OF DOING DCS TRIAL. PAIN THE PATIENT DESCRIBES THE PAIN... FALL RISK SCREENING: SCREENING :NO FALLS IN THE PAST YEAR CURRENT MEDICATIONS TAKING PRAZOSIN HCL 5 MG CAPSULE 2 CAPSULES ORALLY ONCE A DAY AT BEDTIME TAKING LISINOPRIL 10 MG TABLET ORALLY DAILY TAKING SEROQUEL 25 MG TABLET 1 TABLET ORALLY ONCE A DAY TAKING GABAPENTIN 600 MG TABLET 1 TABLET ORALLY TWICE A DAY- ER TAKING CYMBALTA 60 MG CAPSULE DELAYED RELEASE PARTICLES 1 1/2CAPSULE ORALLY ONCE A DAY 90 MG NOT-TAKING SOMA 350 MG TABLET 1 TABLET NEEDED ORALLY Q 6 HRS PRN FOR SPASMS AND PAIN MDD4, NOTES: 12/10/16 1700 NOT-TAKING KETOROLAC TROMETHAMINE 10 MG TABLET 1 TABLET WITH FOOD OR MILK NEEDED ORALLY EVERY 6 HRS PRN FOR PAIN MDD4, NOTES: 12/10/16 1800 NOT-TAKING CELEBREX 200 MG CAPSULE 1 CAPSULE ORALLY ONCE A DAY FOR PAIN NOT-TAKING TIZANIDINE HCL 2 MG TABLET 1 TABLET NEEDED ORALLY FOR SPASMSM AND PAIN THREE TIMES A DAY MEDICATION LIST REVIEWED AND RECONCILED WITH THE PATIENT PAST MEDICAL HISTORY HTN 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 NEW PATIENT PAIN DIARY TODAY'S VISITNOTES FROM 0-10, WHAT LEVEL IS YOUR PAIN TODAY?0 PAIN CLINIC PFS, CLERGY, PUBLIC HEALTH REFERRALS PFS REFERRAL NEEDED?NO CLERGY REFERRAL NEEDED?NO PUBLIC HEALTH REFERRAL NEEDED?NO WAS THE PROVIDER NOTIFIED OF ANY PERTINENT INFO?NO PFS REFERRAL NEEDED?NO CLERGY REFERRAL NEEDED?NO PUBLIC HEALTH REFERRAL NEEDED?NO WAS THE PROVIDER NOTIFIED OF ANY PERTINENT INFO?NO REVIEW OF SYSTEMS CONSTITUTIONAL: ANY CHANGE IN YOUR MEDICAL CONDITION? NO . RECENT ILLNESS DENIES . CHILLS NO . FEVER NO . WEIGHT LOSS DENIES . INFECTION: DO YOU HAVE NEW INFECTIONS? NO . DO YOU HAVE HISTORY OF MRSA? NO . MUSCULOSKELETAL: ANY NEW PATTERNS OF PAIN OR NUMBNESS? NO . GASTROENTEROLOGY: ANY NEW CHANGE IN BOWEL CONTROL? NO . GENITOURINARY: ANY NEW CHANGE IN BLADDER CONTROL? NO . IS THERE A CHANCE YOU COULD BE ? NO . HEMATOLOGY/LYMPH: DO YOU TAKE ANY BLOOD THINNERS? (FOR EXAMPLE- COUMADIN, PLAVIX, AGGRENOX, PLATEL, PRADAXA, OR XARELTO) NO . WHEN WAS YOUR LAST DOSE? DATE: TIME: . NEUROLOGY: HAVE YOU FALLEN IN THE PAST 6 MONTHS? NO . ANY NEW EXTREMITY NUMBNESS OR WEAKNESS? NO . CARDIOLOGY: DO YOU HAVE A PACEMAKER OR DEFIBRILLATOR? NO . CHEST PAIN DENIES . SHORTNESS OF BREATH DENIES . RESPIRATORY: HAVE YOU BEEN SICK IN THE PAST WEEK? NO . FEVER NO . FLU LIKE SYMPTOMS? NO . COUGH NO, DENIES . SHORTNESS OF BREATH DENIES . INTEGUMENTARY: DO YOU HAVE ANY RASHES OR OPEN SORES? NO . ALLERGIC/IMMUNO: ARE YOU ALLERGIC TO SHELLFISH OR IV DYE? NO . ANY NEW ALLERGIES? NO . PSYCHIATRIC: DO YOU HAVE THOUGHTS OF HURTING YOURSELF OR SOMEONE ELSE? NO . ARE YOU ABUSED, NEGLECTED, OR IN AN UNSAFE ENVIRONMENT? NO . ENDOCRINOLOGY: ARE YOU DIABETIC? NO . OTHER: DO YOU NEED ANY PRESCRIPTIONS? NO . IF YES, PLEASE LIST: ____ . ANY NEW PROBLEMS WITH YOUR MEDICATIONS? NO . WHEN DID YOU LAST EAT? ____ . WHEN DID YOU LAST DRINK? ____ . WHAT DID YOU LAST DRINK? ____ . NAME OF PERSON DRIVING YOU HOME? ____ . DO YOU HAVE ANY OTHER QUESTIONS OR CONCERNS NO . REVIEWED BY: PROVIDER: EMILEE MOORE . VITAL SIGNS WT 198 LBS, HT 65 IN, BMI 32.95 INDEX, BP 143/90 MM HG, HR 78 /MIN, RR 16 /MIN, TEMP 97.9 F, OXYGEN SAT % 91%, NA INITIALS SC 08:49. EXAMINATION GENERAL EXAMINATION: LUNGS:LUNG SOUNDS ARE CLEAR. HEART:HEART RATE REGULAR. MUSCULOSKELETAL:*, MUSCLE STRENGTH TESTING 5/5 BILATERAL LOWER EXTREMITIES, PALPATION: POSITIVE FOR PAIN OVER L/S SPINE. POSITIVE FOR PAIN OVER L/S PARASPINALS. 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 SCHNEIDER ELECTRONICALLY SIGNED BY OSCAR RODRIGUEZ ON 12/20/2016 AT 09:41 AM EST DISCLAIMER : THIS IS A VISIT SUMMARY EXTRACTED FROM THE [employer] CHART. IT IS NOT A COPY OF THE [employer] PROGRESS NOTE. MTDD
== END ==
LOC: M PAIN 09:00
PROVIDERS: ATTEND Nurse Practitioner Family
DX: Z09 Encounter for follow-up examination after completed treatment for conditions other than malignant neoplasm (principal); G89.29 Other chronic pain; M79.1 Myalgia; M51.16 Intervertebral disc disorders with radiculopathy, lumbar region; M46.1 Sacroiliitis, not elsewhere classified; I10 Essential (primary) hypertension; M47.816 Spondylosis without myelopathy or radiculopathy, lumbar region; M47.817 Spondylosis without myelopathy or radiculopathy, lumbosacral region; M51.17 Intervertebral disc disorders with radiculopathy, lumbosacral region; G47.30 Sleep apnea, unspecified; F43.10 Post-traumatic stress disorder, unspecified; F41.9 Anxiety disorder, unspecified; F32.9 Major depressive disorder, single episode, unspecified; Z88.5 Allergy status to narcotic agent; Z79.899 Other long term (current) drug therapy

== ENCOUNTER → 2017-01-02 | Outpatient (CLI) | payer OTHER ==
--- NOTE | 2017-01-09 02:17 | ECWPNPC ---
PATIENT NAME: ALLY VILLANUEVA : 1975 GENDER: MALE VISIT DATE: 01/02/2017 DISCHARGE DATE: 01/02/17 1023 VISIT LOCKED DATE TIME: PHYSICIAN: ESTEBAN SCHNEIDER RESOURCE: ESTEBAN SCHNEIDER REASON FOR APPOINTMENT 1. LOW BACK PAIN HISTORY OF PRESENT ILLNESS HISTORY OF PRESENT ILLNESS: PAIN THE PATIENT DESCRIBES THE PAIN... 41 YEAR OLD MALE PATIENT WITH HISTORY OF CHRONIC LOW BACK PAIN. PATIENT DESCRIBES THE PAIN ACHING, BURNING, STABBING, AND HAVING IT ALL THE TIME WITH A PAIN SCORE OF 5/10. PATIENT RECEIVED A TRIGGER POINT INJECTION ON 12/11/16 AND STATES THAT HE HAD ABOUT A WEEK OF PAIN RELIEF. CURRENTLY THE PATIENT IS USING GABAPENTIN AND CYMBALTA TO AID IN PAIN RELIEF BUT REPORTS THAT IT DOES NOT HELP. MR. CANALES WOULD LIKE TO MOVE FORWARD WITH A DCS TRIAL SOON POSSIBLE. ANY TYPE OF ACTIVITY INCREASES THE PAIN IN THE LOWER BACK. TENNS UNIT AND REST IS THE ONLY THING THAT RELIEVES THE PAIN BUT HE IS STILL VERY UNCOMFORTABLE. PATIENT DENIES UNEXPLAINABLE WEIGHT LOSS, FEVER, CHILLS, NEW CHANGES ON HER URINARY OR BOWEL CONTROL. FALL RISK SCREENING: SCREENING :NO FALLS IN THE PAST YEAR CURRENT MEDICATIONS TAKING PRAZOSIN HCL 5 MG CAPSULE 2 CAPSULES ORALLY ONCE A DAY AT BEDTIME TAKING LISINOPRIL 10 MG TABLET ORALLY DAILY TAKING SEROQUEL 25 MG TABLET 2 ORALLY ONCE A DAY TAKING CYMBALTA 60 MG CAPSULE DELAYED RELEASE PARTICLES 1 1/2CAPSULE ORALLY ONCE A DAY 90 MG TAKING GABAPENTIN 600 MG TABLET 1 TABLET ORALLY TWICE A DAY- ER NOT-TAKING CELEBREX 200 MG CAPSULE 1 CAPSULE ORALLY ONCE A DAY FOR PAIN NOT-TAKING TIZANIDINE HCL 2 MG TABLET 1 TABLET NEEDED ORALLY FOR SPASMSM AND PAIN THREE TIMES A DAY MEDICATION LIST REVIEWED AND RECONCILED WITH THE PATIENT PAST MEDICAL HISTORY HTN 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 SOCIAL HISTORY GENERAL: TOBACCO USE ARE YOU A:CURRENT SMOKER PATIENT COUNSELED ON THE DANGERS OF TOBACCO USE AND URGED TO QUIT:01/02/2017 ARE YOU INTERESTED IN QUITTING?NOT READY TO QUIT COUNSELED THE PATIENT ON SMOKING EFFECTS, EDUCATION [id number]/08/2017 LEARNING BARRIERS / SPECIAL NEEDS ORIENTED TO PLAN OF CARE: PATIENT, PAIN MANAGEMENT PATIENT, ORIENTED TO PLAN OF CARE: PATIENT, PAIN MANAGEMENT PATIENT, ORIENTED TO PLAN OF CARE: PATIENT, PAIN MANAGEMENT PATIENT. NEW PATIENT PAIN DIARY TODAY'S VISITNOTES FROM 0-10, WHAT LEVEL IS YOUR PAIN TODAY?0 PAIN CLINIC PFS, CLERGY, PUBLIC HEALTH REFERRALS PFS REFERRAL NEEDED?NO CLERGY REFERRAL NEEDED?NO PUBLIC HEALTH REFERRAL NEEDED?NO WAS THE PROVIDER NOTIFIED OF ANY PERTINENT INFO?NO PFS REFERRAL NEEDED?NO CLERGY REFERRAL NEEDED?NO PUBLIC HEALTH REFERRAL NEEDED?NO WAS THE PROVIDER NOTIFIED OF ANY PERTINENT INFO?NO PFS REFERRAL NEEDED?NO CLERGY REFERRAL NEEDED?NO PUBLIC HEALTH REFERRAL NEEDED?NO WAS THE PROVIDER NOTIFIED OF ANY PERTINENT INFO?NO HOSPITALIZATION/MAJOR DIAGNOSTIC PROCEDURE NO HOSPITALIZATION HISTORY. REVIEW OF SYSTEMS CONSTITUTIONAL: ANY CHANGE IN YOUR MEDICAL CONDITION? NO . CHILLS NO . FEVER NO . INFECTION: DO YOU HAVE NEW INFECTIONS? NO . DO YOU HAVE HISTORY OF MRSA? NO . MUSCULOSKELETAL: ANY NEW PATTERNS OF PAIN OR NUMBNESS? NO . GASTROENTEROLOGY: ANY NEW CHANGE IN BOWEL CONTROL? NO . GENITOURINARY: ANY NEW CHANGE IN BLADDER CONTROL? NO . IS THERE A CHANCE YOU COULD BE ? NO . HEMATOLOGY/LYMPH: DO YOU TAKE ANY BLOOD THINNERS? (FOR EXAMPLE- COUMADIN, PLAVIX, AGGRENOX, PLATEL, PRADAXA, OR XARELTO) NO . WHEN WAS YOUR LAST DOSE? DATE: TIME: . NEUROLOGY: HAVE YOU FALLEN IN THE PAST 6 MONTHS? NO . ANY NEW EXTREMITY NUMBNESS OR WEAKNESS? NO . CARDIOLOGY: DO YOU HAVE A PACEMAKER OR DEFIBRILLATOR? NO . RESPIRATORY: HAVE YOU BEEN SICK IN THE PAST WEEK? NO . FEVER NO . FLU LIKE SYMPTOMS? NO . COUGH NO . INTEGUMENTARY: DO YOU HAVE ANY RASHES OR OPEN SORES? NO . ALLERGIC/IMMUNO: ARE YOU ALLERGIC TO SHELLFISH OR IV DYE? NO . ANY NEW ALLERGIES? NO . PSYCHIATRIC: DO YOU HAVE THOUGHTS OF HURTING YOURSELF OR SOMEONE ELSE? NO . ARE YOU ABUSED, NEGLECTED, OR IN AN UNSAFE ENVIRONMENT? NO . ENDOCRINOLOGY: ARE YOU DIABETIC? NO . OTHER: DO YOU NEED ANY PRESCRIPTIONS? NO . IF YES, PLEASE LIST: ____ . ANY NEW PROBLEMS WITH YOUR MEDICATIONS? NO . WHEN DID YOU LAST EAT? ____ . WHEN DID YOU LAST DRINK? ____ . WHAT DID YOU LAST DRINK? ____ . NAME OF PERSON DRIVING YOU HOME? ____ . DO YOU HAVE ANY OTHER QUESTIONS OR CONCERNS NO . REVIEWED BY: PROVIDER: ESTEBAN SCHNEIDER MD . VITAL SIGNS WT 194 LBS, HT 65 IN, BMI 32.28 INDEX, BP 136/93 MM HG, HR 86 /MIN, RR 16 /MIN, TEMP 97.5 F, OXYGEN SAT % 96, NA INITIALS TL [id number], REVIEWED BY: VD. EXAMINATION : PATIENT IS ALERT O X 3 AND COOPERATIVE. MR. VILLANUEVA UNABLE TO STRAIGHTEN BACK AND STAYS IN A FLEXED POSITION. PATIENT HAS TENDERNESS IN THE LOWER BACK AND PARASPINAL MUSCLE GROUP AND IN THE CERVICAL AREA AND PARASPINAL MUSCLE GROUP. BANDS OF TISSUE, RESTRICTION OF MOVEMENT, AND PRESENCE OF TRIGGER POINTS IN THE BACK. ALSO TENDERNESS AT THE RIGHT AND LEFT SACROILIAC JOINTS. LEFT LEG IS WEAKER THEN THE RIGHT AT EXTENSION AND FLEXION. MRI OF CERVICAL SPINE ON 12/12/14 SHOW DISC PROTRUSIONS AND STENOSIS AT C5-C6 AND C6-C7. MRI OF THE LUMBAR SPINE DONE ON 03/08/16 SHOW DISC BULGE AT L4-L5. THORACIC MRI DONE ON 11/06/15 SHOWS ADEQUATE ROOM FOR THE LEADS TO PASS THROUGH. ASSESSMENTS INTERVERTEBRAL DISC DISORDERS WITH RADICULOPATHY, LUMBAR REGION - M51.16 (PRIMARY) SACROILIITIS, NOT ELSEWHERE CLASSIFIED - M46.1 TREATMENT INTERVERTEBRAL DISC DISORDERS WITH RADICULOPATHY, LUMBAR REGION START KEFLEX CAPSULE, 500 MG, 1 CAPSULE, ORALLY, THREE TIMES DAILY, 10 DAY(S), 30, REFILLS 0 NOTES: WE DISCUSSED SEVERAL ISSUES WITH MR. VILLANUEVA'S PAIN MANAGEMENT CASE. AT THIS TIME THE PATIENT WILL CONTINUE WITH THE SAME MEDICATION REGIME BEFORE. WE DISCUSSED MOVING FORWARD WITH THE DCS TRIAL. WE REVIEWED THE MRI'S WELL THE PSYCHOLOGICAL EVALUATION AND THE PATIENT IS CLEAR TO MOVE FORWARD IN THIS ASPECT. PATIENT WILL BE PENDING THE TRIAL FOR 01/21/17. IF THERE IS ANY ISSUES AND THE PATIENT IS UNABLE TO MOVE FORWARD WITH THE TRIAL ON 01/21/17 PATIENT WILL BE BOOKED FOR 02/18/17 FOR THE TRIAL. WE DISCUSSED THE RISKS, BENEFITS, AND ALTNERATIVES OF THE DCS TRIAL AND THE PATIENT WOULD LIKE TO PROCEED AT THIS TIME. INSTRUCTIONS WERE GIVEN, QUESTIONS WERE ANSWERED, PATIENT REPORTS UNDERSTANDING AND AGREES WITH THE PLAN. KANDI White, DOCUMENTED THE ABOVE INFORMATION ACTING A SCRIBE FOR DR. SCHNEIDER. I HAVE REVIEWED THE ABOVE DOCUMENT, WRITTEN BY KANDI BE AND I VERIFY THAT IT IS ACCURATE. PROCEDURE CODES FA211 ESTABILISHED PATIENT [facility] FACILITY CHARGE G8427 DOC MEDS VERIFIED W/PT OR RE G8730 PAIN ASSESS POS TOOL F/U PLAN DOC DISPOSITION & COMMUNICATION FOLLOW UP DCS TRIAL ELECTRONICALLY SIGNED BY ESTEBAN SCHNEIDER MD ON 01/06/2017 AT 11:05 AM EDT DISCLAIMER : THIS IS A VISIT SUMMARY EXTRACTED FROM THE [employer] CHART. IT IS NOT A COPY OF THE [employer] PROGRESS NOTE. MTDD
== END ==
LOC: M PAIN 08:40
PROVIDERS: ATTEND Anesthesiology
DX: Z09 Encounter for follow-up examination after completed treatment for conditions other than malignant neoplasm (principal); G89.29 Other chronic pain; M51.16 Intervertebral disc disorders with radiculopathy, lumbar region; M46.1 Sacroiliitis, not elsewhere classified; I10 Essential (primary) hypertension; R51 Headache; G47.30 Sleep apnea, unspecified; F43.10 Post-traumatic stress disorder, unspecified; F41.9 Anxiety disorder, unspecified; F32.9 Major depressive disorder, single episode, unspecified; Z88.5 Allergy status to narcotic agent; F17.200 Nicotine dependence, unspecified, uncomplicated; Z79.899 Other long term (current) drug therapy

== ENCOUNTER → 2017-01-18 | Outpatient (CLI) | payer OTHER ==
[~2017-01-18] MED LIST changes: +GABA600T PO; +SONA10CA6 PO
--- NOTE | 2017-01-21 23:30 | ECWPNPC ---
PATIENT NAME: ALLY VILLANUEVA : 1975 GENDER: MALE VISIT DATE: 01/18/2017 DISCHARGE DATE: 01/18/17 1307 VISIT LOCKED DATE TIME: PHYSICIAN: ESTEBAN SCHNEIDER RESOURCE: ESTEBAN SCHNEIDER REASON FOR APPOINTMENT 1. LOW BACK PAIN HISTORY OF PRESENT ILLNESS HISTORY OF PRESENT ILLNESS: PAIN THE PATIENT DESCRIBES THE PAIN... 41 YEAR OLD MALE PATIENT WITH HISTORY OF CHRONIC LOW BACK PAIN. PATIENT DESCRIBES THE PAIN SHARP, STABBING, AND HAVING IT ALL THE TIME WITH A PAIN SCORE OF 5/10. PATIENT IS CURRENTLY USING GABAPENTIN TO AID IN PAIN RELIEF AND STATES THAT ANY TYPE OF ACTIVITY INCLUDING WALKING, STANDING, SITTING INCREASES THE PAIN IN HIS LOWER BACK AND AT THIS TIME HE HAS NOT FOUND ANYTHING THAT AIDS IN PAIN RELIEF. PATIENT IS GOING TO RECEIVE DCS ON 01/21/17 DUE TO CANCELLATIONS. PATIENT DENIES UNEXPLAINABLE WEIGHT LOSS, FEVER, CHILLS, NEW CHANGES ON HIS URINARY OR BOWEL CONTROL. FALL RISK SCREENING: SCREENING :NO FALLS IN THE PAST YEAR CURRENT MEDICATIONS TAKING PRAZOSIN HCL 5 MG CAPSULE 2 CAPSULES ORALLY ONCE A DAY AT BEDTIME TAKING LISINOPRIL 10 MG TABLET ORALLY DAILY TAKING SEROQUEL 100 MG TABLET 2 TABLETS AT BEDTIME ORALLY ONCE A DAY TAKING GABAPENTIN 600 MG TABLET 2 TABLETS ORALLY TWICE A DAY- ER TAKING KEFLEX 500 MG CAPSULE 1 CAPSULE ORALLY THREE TIMES DAILY TAKING SONATA 10 MG CAPSULE 1 CAPSULE AT BEDTIME NEEDED ORALLY ONCE A DAY TAKING LEXAPRO 10 MG TABLET 1 TABLET ORALLY ONCE A DAY TAKING VISTARIL 50 MG CAPSULE 2 CAPSULES NEEDED ORALLY EVERY 6 NEEDED NOT-TAKING CYMBALTA 60 MG CAPSULE DELAYED RELEASE PARTICLES 1 1/2CAPSULE ORALLY ONCE A DAY 90 MG NOT-TAKING CELEBREX 200 MG CAPSULE 1 CAPSULE ORALLY ONCE A DAY FOR PAIN NOT-TAKING TIZANIDINE HCL 2 MG TABLET 1 TABLET NEEDED ORALLY FOR SPASMSM AND PAIN THREE TIMES A DAY MEDICATION LIST REVIEWED AND RECONCILED WITH THE PATIENT PAST MEDICAL HISTORY HTN 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 SURGICAL HISTORY NONE FAMILY HISTORY NO FAMILY HISTORY DOCUMENTED. SOCIAL HISTORY GENERAL: TOBACCO USE ARE YOU A:CURRENT SMOKER PATIENT COUNSELED ON THE DANGERS OF TOBACCO USE AND URGED TO QUIT:01/02/2017 ARE YOU INTERESTED IN QUITTING?NOT READY TO QUIT COUNSELED THE PATIENT ON SMOKING EFFECTS, EDUCATION [id number]/08/2017 LEARNING BARRIERS / SPECIAL NEEDS ORIENTED TO PLAN OF CARE: PATIENT, PAIN MANAGEMENT PATIENT, ORIENTED TO PLAN OF CARE: PATIENT, PAIN MANAGEMENT PATIENT, ORIENTED TO PLAN OF CARE: PATIENT, PAIN MANAGEMENT PATIENT. NEW PATIENT PAIN DIARY TODAY'S VISITNOTES FROM 0-10, WHAT LEVEL IS YOUR PAIN TODAY?0 PAIN CLINIC PFS, CLERGY, PUBLIC HEALTH REFERRALS PFS REFERRAL NEEDED?NO CLERGY REFERRAL NEEDED?NO PUBLIC HEALTH REFERRAL NEEDED?NO WAS THE PROVIDER NOTIFIED OF ANY PERTINENT INFO?NO PFS REFERRAL NEEDED?NO CLERGY REFERRAL NEEDED?NO PUBLIC HEALTH REFERRAL NEEDED?NO WAS THE PROVIDER NOTIFIED OF ANY PERTINENT INFO?NO PFS REFERRAL NEEDED?NO CLERGY REFERRAL NEEDED?NO PUBLIC HEALTH REFERRAL NEEDED?NO WAS THE PROVIDER NOTIFIED OF ANY PERTINENT INFO?NO HOSPITALIZATION/MAJOR DIAGNOSTIC PROCEDURE BEHAVIORAL HEALTH 07/2016 BEHAVIORAL HEALTH 08/2016 REVIEW OF SYSTEMS CONSTITUTIONAL: ANY CHANGE IN YOUR MEDICAL CONDITION? NO . CHILLS NO . FEVER NO . INFECTION: DO YOU HAVE NEW INFECTIONS? NO . DO YOU HAVE HISTORY OF MRSA? NO . MUSCULOSKELETAL: ANY NEW PATTERNS OF PAIN OR NUMBNESS? NO . GASTROENTEROLOGY: ANY NEW CHANGE IN BOWEL CONTROL? NO . GENITOURINARY: ANY NEW CHANGE IN BLADDER CONTROL? NO . IS THERE A CHANCE YOU COULD BE ? NO . HEMATOLOGY/LYMPH: DO YOU TAKE ANY BLOOD THINNERS? (FOR EXAMPLE- COUMADIN, PLAVIX, AGGRENOX, PLATEL, PRADAXA, OR XARELTO) NO . WHEN WAS YOUR LAST DOSE? DATE: TIME: . NEUROLOGY: HAVE YOU FALLEN IN THE PAST 6 MONTHS? NO . ANY NEW EXTREMITY NUMBNESS OR WEAKNESS? NO . CARDIOLOGY: DO YOU HAVE A PACEMAKER OR DEFIBRILLATOR? NO . RESPIRATORY: HAVE YOU BEEN SICK IN THE PAST WEEK? NO . FEVER NO . FLU LIKE SYMPTOMS? NO . COUGH NO . INTEGUMENTARY: DO YOU HAVE ANY RASHES OR OPEN SORES? NO . ALLERGIC/IMMUNO: ARE YOU ALLERGIC TO SHELLFISH OR IV DYE? NO . ANY NEW ALLERGIES? NO . PSYCHIATRIC: DO YOU HAVE THOUGHTS OF HURTING YOURSELF OR SOMEONE ELSE? NO . ARE YOU ABUSED, NEGLECTED, OR IN AN UNSAFE ENVIRONMENT? NO . ENDOCRINOLOGY: ARE YOU DIABETIC? NO . OTHER: DO YOU NEED ANY PRESCRIPTIONS? NO . IF YES, PLEASE LIST: ____ . ANY NEW PROBLEMS WITH YOUR MEDICATIONS? NO . WHEN DID YOU LAST EAT? ____ . WHEN DID YOU LAST DRINK? ____ . WHAT DID YOU LAST DRINK? ____ . NAME OF PERSON DRIVING YOU HOME? ____ . DO YOU HAVE ANY OTHER QUESTIONS OR CONCERNS NO . REVIEWED BY: PROVIDER: ESTEBAN SCHNEIDER MD . VITAL SIGNS WT 200 LBS, HT 65 IN, BMI 33.28 INDEX, BP 134/93 MM HG, HR 92 /MIN, RR 16 /MIN, TEMP 98.5 F, OXYGEN SAT % 96, NA INITIALS TL 1035, REVIEWED BY: LS. EXAMINATION : PATIENT IS ALERT O X 3 AND COOPERATIVE. MR. VILLANUEVA UNABLE TO STRAIGHTEN BACK AND STAYS IN A FLEXED POSITION. PATIENT HAS TENDERNESS IN THE LOWER BACK AND PARASPINAL MUSCLE GROUP AND IN THE CERVICAL AREA AND PARASPINAL MUSCLE GROUP. BANDS OF TISSUE, RESTRICTION OF MOVEMENT, AND PRESENCE OF TRIGGER POINTS IN THE BACK. ALSO TENDERNESS AT THE RIGHT AND LEFT SACROILIAC JOINTS. LEFT LEG IS WEAKER THEN THE RIGHT AT EXTENSION AND FLEXION. MRI OF CERVICAL SPINE ON 12/12/14 SHOW DISC PROTRUSIONS AND STENOSIS AT C5-C6 AND C6-C7. MRI OF THE LUMBAR SPINE DONE ON 03/08/16 SHOW DISC BULGE AT L4-L5. THORACIC MRI DONE ON 11/06/15 SHOWS ADEQUATE ROOM FOR THE LEADS TO PASS THROUGH. LUNGS CLEAR. ASSESSMENTS INTERVERTEBRAL DISC DISORDERS WITH RADICULOPATHY, LUMBAR REGION - M51.16 (PRIMARY) TREATMENT INTERVERTEBRAL DISC DISORDERS WITH RADICULOPATHY, LUMBAR REGION NOTES: WE DISCUSSED SEVERAL ISSUES WITH MR. VILLANUEVA'S PAIN MANAGEMENT CASE. AT THIS TIME THE PATIENT WILL CONTINUE WITH THE SAME MEDICATION REGIME BEFORE. PATIENT WILL RECEIVE THE DCS TRIAL ON 01/21/17 DUE TO CANCELLATIONS. PATIENT IS AWARE THAT HE WILL STAY OVER NIGHT IN THE HOSPITAL AND BE ABLE TO LEAVE EARLY SATURDAY MORNING. PATIENT WILL NEED TO RETURN TO THE CLINIC ON THE FOLLOWING SATURDAY FOR THE LEAD PULL AND TO DISCUSS HOW THE DCS HELPED. PATIENT RECEIVED HIS ANTIBIOTIC TO BE USED AFTER THE STAY IN THE HOSPITAL. WE DISCUSSED THE RISKS, BENEFITS, AND ALTNERATIVES OF THE DCS AND THE PATIENT WOULD LIKE TO PROCEED AT THIS TIME. INSTRUCTIONS WERE GIVEN, QUESTIONS WERE ANSWERED, PATIENT REPORTS UNDERSTANDING AND AGREES WITH THE PLAN. IKANDI, DOCUMENTED THE ABOVE INFORMATION ACTING A SCRIBE FOR DR. SCHNEIDER. I HAVE REVIEWED THE ABOVE DOCUMENT, WRITTEN BY KANDI BE AND I VERIFY THAT IT IS ACCURATE. PROCEDURE CODES FA211 ESTABILISHED PATIENT [facility] FACILITY CHARGE G8427 DOC MEDS VERIFIED W/PT OR RE G8730 PAIN ASSESS POS TOOL F/U PLAN DOC DISPOSITION & COMMUNICATION FOLLOW UP DCS - LEAD PULL 5 DAYS AFTER ELECTRONICALLY SIGNED BY ESTEBAN SCHNEIDER MD ON 01/21/2017 AT 06:05 PM EDT DISCLAIMER : THIS IS A VISIT SUMMARY EXTRACTED FROM THE [employer] CHART. IT IS NOT A COPY OF THE [employer] PROGRESS NOTE. MTDD
== END | disposition home or self-care (01) ==
LOC: M PAIN 10:30
PROVIDERS: ATTEND Anesthesiology
DX: Z09 Encounter for follow-up examination after completed treatment for conditions other than malignant neoplasm (principal); G89.29 Other chronic pain; M51.16 Intervertebral disc disorders with radiculopathy, lumbar region; I10 Essential (primary) hypertension; F43.10 Post-traumatic stress disorder, unspecified; F41.9 Anxiety disorder, unspecified; F32.9 Major depressive disorder, single episode, unspecified; G47.30 Sleep apnea, unspecified; Z79.899 Other long term (current) drug therapy; Z79.2 Long term (current) use of antibiotics; G56.20 Lesion of ulnar nerve, unspecified upper limb

== ENCOUNTER 2017-01-21 08:06 | Day surgery (SDC) | payer OTHER ==
[~2017-01-21] VITALS: Ht 165.1 cm; Wt 98.4 kg
[2017-01-21] VITALS (9 sets, daily range): BP systolic 118–127; BP diastolic 56–80
[~2017-01-21 08:06] MED LIST changes: -GABA600T PO; -SONA10CA6 PO
[2017-01-21] MEDS ORDERED: PROPOFOL 200 MG/20 ML VIAL As Ordered ONE (08:32)
[2017-01-21] MEDS ORDERED: fentaNYL 100 MCG/2 ML INJECTION (J3010) As Ordered ONE (08:32)
[2017-01-21] MEDS ORDERED: LIDOCAINE 2% INJ 100 MG/5 ML SDV (FOR ANES.) As Ordered ONE (08:32)
[2017-01-21] MEDS ORDERED: MIDAZOLAM INJ 5 MG/ML VIAL (J2250) As Ordered ONE (08:32)
[2017-01-21] MEDS ORDERED: GABA600T PO (08:57)
[2017-01-21] MEDS ORDERED: ceFAZolin SOD 1 GM in D5W MINI-BAG PLUS 50 ML IV ONE (09:00)
[2017-01-21] MEDS ORDERED: LIDOCAINE W/EPINEPHRINE 1% 20ML VIAL As Ordered ONE (09:54)
[2017-01-21] MEDS ORDERED: THROMBIN SOLN 20,000 UNITS KIT As Ordered ONE (09:54)
[2017-01-21] MEDS ORDERED: BACITRACIN PWD 50,000 UNITS VIAL As Ordered ONE (09:54)
[2017-01-21] MEDS ORDERED: BUPIVACAINE HCL 0.25% 30 ML VIAL As Ordered ONE (10:40)
[2017-01-21] MEDS ORDERED: ISOVUE-300 61% 50ML VIAL (Q9967) As Ordered ONE (10:41)
[2017-01-21] MEDS ORDERED: PERCOCET 5MG/325MG TAB As Ordered ONE (12:50)
[2017-01-21] MEDS: PERCOCET 5MG/325MG TAB PO PRN ×2 (13:00→13:26)
[2017-01-21] MEDS ORDERED: LR 1,000 ML IV SCH (13:15)
[2017-01-21] MEDS ORDERED: ONDANSETRON 4MG/2ML VIAL (J2405) IV PRN (13:15)
[2017-01-21] MEDS ORDERED: fentaNYL 100 MCG/2 ML INJECTION (J3010) IV PRN (13:15)
--- NOTE | 2017-01-21 16:55 | REP ---
FLUOROSCOPIC GUIDANCE FOR DORSAL COLUMN STIMULATOR PLACEMENT: 01/21/2017. Clinical history: Back pain. Six images from C-arm fluoroscopy provided to Dr. Hernandez of the pain clinic. These leads penetrate the neural canal in the upper lumbar region. They extend to the T4-T5 disc level in the dorsal aspect of the neural canal. Fluoroscopy time: 7 minutes 45 seconds. Signed by Jim Gaitan MD 01/21/2017 05:50 P
[2017-01-21] MEDS: ceFAZolin SOD 1 GM in D5W MINI-BAG PLUS 50 ML IV SCH ×2 (16:56→22:34)
[2017-01-21] MEDS ORDERED: SONA10CA6 PO (17:06)
[2017-01-21] MEDS ORDERED: hydrOXYzine 50 MG TAB PO PRN (18:00)
--- NOTE | 2017-01-21 19:03 | CR.PDOC ---
[facility] Consultation Consultation DATE OF CONSULTATION: Jan 21, 2017 at 08:06 PRIMARY CARE PHYSICIAN: REFERRING PROVIDER: Yaw Ayon M.D. ATTENDING PHYSICIAN: Dr. Hernandez REASON FOR CONSULTATION/CHIEF COMPLAINT: . Medical comanagement HISTORY OF PRESENT ILLNESS: . 41-year-old male with past medical history of depression, anxiety, PTSD, and chronic pain was admitted by Dr. Hernandez pain management for placement of spinal column stimulator trial. At this time, the patient states that his pain is relatively controlled, and he denies any acute complaints of fevers, chills, shortness of breath, chest pain, palpitations, abdominal pain, or any nausea/ vomiting/diarrhea. The hospitalist team was consulted in aiding of the management of the patient's chronic medical comorbidities. ALLERGIES: Please see below. HOME MEDICATIONS: Please see below. PAST MEDICAL HISTORY: As noted in HPI PAST SURGICAL HISTORY: None FAMILY HISTORY: Noncontributory SOCIAL HISTORY: Marital status and/or living arrangements: Resides in: [place] Marital Status: Kids: 2 Employment: Active duty Tobacco use: Denies ETOH: Once per week 6 drinks Illicit Drugs: Denies IV Drug Use: Denies Tattoos done unprofessionally: Denies REVIEW OF SYSTEMS: 10 point review of systems negative unless otherwise specified in HPI PHYSICAL EXAMINATION: VITAL SIGNS: Please see below. GENERAL APPEARANCE: . Awake, alert, in no acute distress HEENT: . Normocephalic, atraumatic RESPIRATORY: . Clear to auscultation bilaterally CARDIOVASCULAR: . Normal rate, normal rhythm ABDOMEN: . Soft, nontender, nondistended EXTREMITIES: . No erythema, no tenderness, no swelling Skin-spinal column stimulator noted in the lower back region, with no surrounding erythema, tenderness in the insertion site LABORATORY DATA: Please see below. ASSESSMENT/PLAN: Chronic pain status post spinal column stimulator trial Pain management as per Dr. Hernandez History of anxiety/depression/PTSD Patient denies any homicidal, suicidal, or depressive symptoms at this time Continue Paxil, Seroquel, hydroxyzine DVT prophylaxis-TEDs Vital Signs/I&O Vital Signs Date Time Temp Pulse Resp B/P Pulse Ox O2 Delivery O2 Flow Rate FiO2 01/21/17 14:09 18 01/21/17 14:00 Room Air 01/21/17 13:29 98.2 72 118/69 95 Allergies Coded Allergies: Tramadol (Unverified Adverse Reaction, Unknown, HIVES, 08/02/16) Home Medications Scheduled Gabapentin (Gabapentin) 600 Mg Tab 1,200 MG PO BID (Reported) Paroxetine (Paroxetine HCl) 20 Mg Tab #7 40 MG PO DAILY DEPRESSION Prazosin HCl (Minipress) 1 Mg Cap #7 4 MG PO QHS ANXIETY/AGITATION Scheduled PRN (Sonata) 10 Mg Cap 10 MG PO QHS PRN PRN SLEEP (Reported) Hydroxyzine HCl (Hydroxyzine HCl) 50 Mg Tab #7 50 MG PO QHSP PRN PRN INSOMNIA YAW AYON MD Jan 21, 2017 19:03
[2017-01-21] MEDS ORDERED: SONATA 10 MG PO SCH (21:00)
[2017-01-21] MEDS ORDERED: QUEtiapine FUMARATE 200 MG TAB PO SCH (21:00)
[2017-01-21] MEDS ORDERED: RAMELTEON 8 MG TAB (ROZEREM) PO SCH (21:00)
[2017-01-21] MEDS ORDERED: GABAPENTIN 400 MG CAP PO SCH (21:00)
[2017-01-21] MEDS ORDERED: PRAZOSIN 1 MG CAP PO SCH (21:00)
[2017-01-21] MEDS: NORCO, ANEXSIA 5/325MG TABLET (HYDROcodone/ACETAMINOPHEN) PO PRN (21:14)
[2017-01-22 02:00] VITALS: BP 121/78
[2017-01-22 06:00] VITALS: BP 117/56
[2017-01-22] MEDS: NORCO, ANEXSIA 5/325MG TABLET (HYDROcodone/ACETAMINOPHEN) PO PRN (06:02)
[2017-01-22 07:17] LABS: MEAN CORPUSCULAR HEMOGLOBIN 32.4 pg (27.0-33.0); MEAN CORPUSCULAR HGB CONC 34.1 g/dl (32.0-36.5); MEAN CORPUSCULAR VOLUME 95.1 fl (80.0-96.0); RED CELL DISTRIBUTION WIDTH 12.6 % (11.5-14.5); WHITE BLOOD COUNT 6.8 K/mm3 (4.0-10.0)
[2017-01-22 07:33] LABS: ANION GAP 9 MEQ/L (8-16); BLOOD UREA NITROGEN 11 MG/DL (7-18); CALCIUM LEVEL 8.8 MG/DL (8.5-10.1); CARBON DIOXIDE LEVEL 26 MEQ/L (21-32); CHLORIDE LEVEL 105 MEQ/L (98-107); CREATININE FOR GFR 0.97 MG/DL (0.70-1.30); GLOMERULAR FILTRATION RATE > 60.0 (>60); GLUCOSE, FASTING 129 MG/DL (70-105); SODIUM LEVEL 140 MEQ/L (136-145)
[2017-01-22] MEDS ORDERED: AZELASTINE 137MCG NASAL SPY 30 ML (ASTELIN) SCH (09:00)
[2017-01-22] MEDS ORDERED: PARoxetine 20 MG TAB PO SCH (09:00)
--- NOTE | 2017-01-22 15:44 | IPN ---
DATE: 01/22/2017 Mr. Gomez is comfortable this morning. Apparently, the device is set on a low setting. He is most comfortable laying on his belly. No chest pain, not short of breath. Has tolerated diet. Apparently is in the [facility] at [place]. Temperature 98.8, pulse 65, respiratory rate 14, blood pressure 117/56, 96% on room air. Intake and output (I and O) notable for a positive fluid balance of 870. No bowel movements thus far recorded. He is awake, appropriately interactive, pleasantly conversant. No acute distress. Moving without difficulty. HEART: Regular rate and rhythm. Breathing symmetrical and rested. Midline surgical in his lower back is cleanly dressed. White cell count 6.8, hemoglobin 13.2. BUN 11, creatinine 0.97. ASSESSMENT: This is a 41-year-old with chronic back pain status post dorsal column stimulator, postoperative day number one. PLAN: 1. Patient has a history of anxiety, depression and posttraumatic stress disorder (PTSD). He is in the [facility] ([facility]). Will continue his home medication as ordered. 2. Patient is complaining of some sinus congestion. I have ordered Astelin nasal spray for symptomatic relief. 3. Discharge to pain management and further follow up per Dr. Hernandez.
--- NOTE | 2017-01-29 09:50 | RO ---
DATE OF PROCEDURE: 01/21/2017 PREPROCEDURE DIAGNOSIS: Lumbar radiculopathy. POSTPROCEDURE DIAGNOSIS: Lumbar radiculopathy. PROCEDURE: Spinal column stimulator trial. ANESTHESIA: Local with monitored anesthesia care. SURGEON: Derek Logan MD DOOR TENDER: PREOPERATIVE NOTE: Mr. Gomez is a 42-year-old male patient with a history of chronic low back and leg pain. I evaluated the patient and reviewed the chart. We both agree on doing a spinal column stimulator trial. He has tried interventional management and medication management, and the pain has persisted. The patient denies unexplained weight loss, fevers, chills, changes in his urinary or bowel control. DESCRIPTION OF PROCEDURE: After consent was taken, the patient was brought to the operating room and placed in the prone position. He received cefazolin 1 gram IV. Thoracolumbar area was cleaned with Betadine solution and draped aseptically. Procedure was done under sterile conditions. Under fluoroscopic guidance, target was selected at the interlaminar level of T12-L1. Lidocaine was used to numb the skin and the subcutaneous tissue below it. I used an Epimed needle and touched the right lamina of L1 and then, by loss of resistance technique, the epidural space was reached 6 cm deep into the skin by loss of resistance technique. A 16 contact lead from [employer] was advanced through this needle and placed at the level approximately of T6. A decision was made to place a second lead. The target was the left lamina of L1. I used a second Epimed needle towards the left lamina of L1 and then by loss of resistance technique, the epidural space was reached 6 cm deep into the skin by loss of resistance technique. A second Epimed needle was used to touch the left lamina of L1, and then the epidural space was reached 6 cm deep into the skin by loss of resistance technique. Then a second lead from [employer], 16 contact lead was advanced through this needle until I reached the epidural space with the lead and the lead was advanced parallel to the first one and placed at the level of T6. After appropriate position of the leads, in the AP and lateral views, extension cables were attached to the leads, which were attached to the computer system of [employer]. I started to do programming. Programming was done for 30 minutes. It was a simple programming where I changed the position of the leads, the contacts used, and the voltage used. The patient was satisfied with the stimulation. Final position of the leads as seen in the AP view was from the lower border of T5 to the upper border of T8. AP and lateral views were taken and put in the patient's electronic medical record. I removed the extension cables. I removed the stylets. The leads were attached to the skin with Steri-Strips and covered with Opsite Tegaderm. The procedure was done without evidence of blood, paresthesia, cerebrospinal fluid. There were no complications during the procedure. The patient was sent to the recovery room to start the trial. There were no complications.
== END 2017-01-22 09:50 | disposition home or self-care (01) ==
LOC: M SDC 08:06 → M MS5PR 13:46 → M SDC 01-22 09:50
PROVIDERS: ATTEND Anesthesiology
DX: M54.16 Radiculopathy, lumbar region (principal); I10 Essential (primary) hypertension; F17.290 Nicotine dependence, other tobacco product, uncomplicated; G47.33 Obstructive sleep apnea (adult) (pediatric); F43.10 Post-traumatic stress disorder, unspecified; M54.2 Cervicalgia; R20.2 Paresthesia of skin; Z79.899 Other long term (current) drug therapy; Z87.448 Personal history of other diseases of urinary system
CPT/HCPCS: 36415; 63650; 77002; 80048; 85027; C1778; J0690; J2250; J3010

== ENCOUNTER → 2017-01-25 | Outpatient (CLI) | payer OTHER ==
[~2017-01-25] MED LIST changes: +ASEN5TA SL; +BRIN1TAB2 PO; +GABA600T PO; +LISI10TA4 PO; +OXYC15TA76 PO; -PARO20TA2 PO; +PARO20TA3 PO; -PARO40TA PO; +PARO40TA2 PO; +PRAZ5CAP PO; +SERO200T PO; +SONA10CA6 PO; +VIST50CA PO
--- NOTE | 2017-01-25 17:24 | REP ---
FLUOROSCOPIC GUIDANCE FOR DORSAL COLUMN STIMULATOR TRIAL REMOVAL: 01/25/2017: Clinical history: Back pain. Findings: Three images from C-arm fluoroscopy provided to Dr. Hernandez of the pain clinic are provided. The initial image elizabeth the T12 level with the lower most of the dorsal column stimulator is at T9. The upper most extent of one of those stimulators is at T5 on the second image. Fluoroscopy time: 14 seconds. Signed by Jim Gaitan MD 01/25/2017 08:16 P
--- NOTE | 2017-02-07 01:48 | ECWPNPC ---
PATIENT NAME: ALLY VILLANUEVA : 1975 GENDER: MALE VISIT DATE: 01/25/2017 DISCHARGE DATE: 01/25/17 1648 VISIT LOCKED DATE TIME: PHYSICIAN: ESTEBAN SCHNEIDER RESOURCE: ESTEBAN SCHNEIDER REASON FOR APPOINTMENT 1. LEAD PULL/ PREOP HISTORY OF PRESENT ILLNESS HISTORY OF PRESENT ILLNESS: PAIN THE PATIENT DESCRIBES THE PAIN... 41 YEAR OLD MALE PATIENT WITH HISTORY OF CHRONIC LOW BACK PAIN. PATIENT REPORTS THAT HIS BACK PAIN IS 0/10, BUT DUE TO THE SURGICAL TRIAL HE REPORTS A PAIN SCORE OF 6/10 FOR POST SURGICAL PAIN. PATIENT STATES THAT HE IS GETTING 90 PERCENT OR BETTER FOR PAIN RELIEF FROM THE SPINAL COLUMN STIMULATOR TRIAL AND AT THIS TIME WOULD LIKE TO PROCEED FORWARD WITH SPINAL COLUMN STIMULATOR PERMANENT. PATIENT DENIES UNEXPLAINABLE WEIGHT LOSS, FEVER, CHILLS, NEW CHANGES ON HIS URINARY OR BOWEL CONTROL. FALL RISK SCREENING: SCREENING :NO FALLS IN THE PAST YEAR CURRENT MEDICATIONS TAKING PRAZOSIN HCL 5 MG CAPSULE 2 CAPSULES ORALLY ONCE A DAY AT BEDTIME TAKING LISINOPRIL 10 MG TABLET ORALLY DAILY TAKING SEROQUEL 100 MG TABLET 2 TABLETS AT BEDTIME ORALLY ONCE A DAY TAKING GABAPENTIN 600 MG TABLET 2 TABLETS ORALLY TWICE A DAY- ER TAKING KEFLEX 500 MG CAPSULE 1 CAPSULE ORALLY THREE TIMES DAILY TAKING SONATA 10 MG CAPSULE 1 CAPSULE AT BEDTIME NEEDED ORALLY ONCE A DAY TAKING LEXAPRO 10 MG TABLET 1 TABLET ORALLY ONCE A DAY TAKING VISTARIL 50 MG CAPSULE 2 CAPSULES NEEDED ORALLY EVERY 6 NEEDED NOT-TAKING CYMBALTA 60 MG CAPSULE DELAYED RELEASE PARTICLES 1 1/2CAPSULE ORALLY ONCE A DAY 90 MG NOT-TAKING CELEBREX 200 MG CAPSULE 1 CAPSULE ORALLY ONCE A DAY FOR PAIN NOT-TAKING TIZANIDINE HCL 2 MG TABLET 1 TABLET NEEDED ORALLY FOR SPASMSM AND PAIN THREE TIMES A DAY MEDICATION LIST REVIEWED AND RECONCILED WITH THE PATIENT PAST MEDICAL HISTORY HTN 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 SURGICAL HISTORY NONE FAMILY HISTORY NO FAMILY HISTORY DOCUMENTED. SOCIAL HISTORY GENERAL: PAIN CLINIC PFS, CLERGY, PUBLIC HEALTH REFERRALS CLERGY REFERRAL NEEDED?NO WAS THE PROVIDER NOTIFIED OF ANY PERTINENT INFO?NO PFS REFERRAL NEEDED?NO PUBLIC HEALTH REFERRAL NEEDED?NO PATIENT: ____. HOSPITALIZATION/MAJOR DIAGNOSTIC PROCEDURE BEHAVIORAL HEALTH 07/2016 BEHAVIORAL HEALTH 08/2016 REVIEW OF SYSTEMS CONSTITUTIONAL: ANY CHANGE IN YOUR MEDICAL CONDITION? NO . CHILLS NO . FEVER NO . INFECTION: DO YOU HAVE NEW INFECTIONS? NO . DO YOU HAVE HISTORY OF MRSA? NO . MUSCULOSKELETAL: ANY NEW PATTERNS OF PAIN OR NUMBNESS? NO . GASTROENTEROLOGY: ANY NEW CHANGE IN BOWEL CONTROL? NO . GENITOURINARY: ANY NEW CHANGE IN BLADDER CONTROL? NO . IS THERE A CHANCE YOU COULD BE ? NO . HEMATOLOGY/LYMPH: DO YOU TAKE ANY BLOOD THINNERS? (FOR EXAMPLE- COUMADIN, PLAVIX, AGGRENOX, PLATEL, PRADAXA, OR XARELTO) NO . WHEN WAS YOUR LAST DOSE? DATE: TIME: . NEUROLOGY: HAVE YOU FALLEN IN THE PAST 6 MONTHS? NO . ANY NEW EXTREMITY NUMBNESS OR WEAKNESS? NO . CARDIOLOGY: DO YOU HAVE A PACEMAKER OR DEFIBRILLATOR? NO . RESPIRATORY: HAVE YOU BEEN SICK IN THE PAST WEEK? NO . FEVER NO . FLU LIKE SYMPTOMS? NO . COUGH NO . INTEGUMENTARY: DO YOU HAVE ANY RASHES OR OPEN SORES? NO . ALLERGIC/IMMUNO: ARE YOU ALLERGIC TO SHELLFISH OR IV DYE? NO . ANY NEW ALLERGIES? NO . PSYCHIATRIC: DO YOU HAVE THOUGHTS OF HURTING YOURSELF OR SOMEONE ELSE? NO . ARE YOU ABUSED, NEGLECTED, OR IN AN UNSAFE ENVIRONMENT? NO . ENDOCRINOLOGY: ARE YOU DIABETIC? NO . OTHER: DO YOU NEED ANY PRESCRIPTIONS? YES . IF YES, PLEASE LIST: SOMETHING FOR PAIN . ANY NEW PROBLEMS WITH YOUR MEDICATIONS? NO . WHEN DID YOU LAST EAT? ____ . WHEN DID YOU LAST DRINK? ____ . WHAT DID YOU LAST DRINK? ____ . NAME OF PERSON DRIVING YOU HOME? ____ . DO YOU HAVE ANY OTHER QUESTIONS OR CONCERNS NO . REVIEWED BY: PROVIDER: ESTEBAN SCHNEIDER MD . VITAL SIGNS WT 209.0 LBS, HT 65 IN, BMI 34.78 INDEX, BP 145/95 MM HG, HR 86 /MIN, RR 16 /MIN, TEMP 98.2 F, OXYGEN SAT % 93, NA INITIALS AW151, REVIEWED BY: CM. EXAMINATION : PATIENT IS ALERT O X 3 AND COOPERATIVE. NO SIGNS OF INFECTION ON THE SURGICAL SITE. MRI OF CERVICAL SPINE ON 12/12/14 SHOW DISC PROTRUSIONS AND STENOSIS AT C5-C6 AND C6-C7. MRI OF THE LUMBAR SPINE DONE ON 03/08/16 SHOW DISC BULGE AT L4-L5. ASSESSMENTS INTERVERTEBRAL DISC DISORDERS WITH RADICULOPATHY, LUMBAR REGION - M51.16 (PRIMARY) TREATMENT INTERVERTEBRAL DISC DISORDERS WITH RADICULOPATHY, LUMBAR REGION NOTES: WE DISCUSSED SEVERAL ISSUES WITH MR. VILLANUEVA'S PAIN MANAGEMENT CASE. AT THIS TIME THE PATIENT WILL CONTINUE WITH THE SAME MEDICATION REGIME BEFORE THE TRIAL. PATIENT STATES HAVING OVER 90% PAIN RELIEF FROM THE DCS TRIAL AND WOULD LIKE TO MOVE FORWARD WITH THE PERMANENT SOON POSSIBLE. PATIENT WILL RETURN TO THE CLINIC FOR PRE-OP PAPER AFTER AUTHORIZATION IS OBTAINED FOR THE PERMANENT. INSTRUCTIONS WERE GIVEN, QUESTIONS WERE ANSWERED, PATIENT REPORTS UNDERSTANDING AND AGREES WITH THE PLAN. DIAGNOSTIC IMAGING [facility] FLUORO GUIDANCE (PAIN)[id number] DISPOSITION & COMMUNICATION FOLLOW UP 3 WEEKS ELECTRONICALLY SIGNED BY ESTEBAN SCHNEIDER MD ON 02/04/2017 AT 09:56 AM EDT DISCLAIMER : THIS IS A VISIT SUMMARY EXTRACTED FROM THE [employer] CHART. IT IS NOT A COPY OF THE [employer] PROGRESS NOTE. BRYON
== END | disposition home or self-care (01) ==
LOC: M PAIN 13:40
PROVIDERS: ATTEND Anesthesiology
DX: G89.29 Other chronic pain (principal); M51.16 Intervertebral disc disorders with radiculopathy, lumbar region; I10 Essential (primary) hypertension; J45.909 Unspecified asthma, uncomplicated; G47.30 Sleep apnea, unspecified; F43.10 Post-traumatic stress disorder, unspecified; F41.9 Anxiety disorder, unspecified; F33.9 Major depressive disorder, recurrent, unspecified; Z79.899 Other long term (current) drug therapy
CPT/HCPCS: 76000; G0463

== ENCOUNTER → 2017-02-12 | Outpatient (CLI) | payer OTHER ==
--- NOTE | 2017-02-17 23:48 | ECWPNPC ---
PATIENT NAME: ALLY VILLANUEVA : 1975 GENDER: MALE VISIT DATE: 02/12/2017 DISCHARGE DATE: 02/12/17 1627 VISIT LOCKED DATE TIME: PHYSICIAN: ESTEBAN SCHNEIDER RESOURCE: ESTEBAN SCHNEIDER REASON FOR APPOINTMENT 1. LOW BACK PAIN HISTORY OF PRESENT ILLNESS HISTORY OF PRESENT ILLNESS: PAIN THE PATIENT DESCRIBES THE PAIN... 41 YEAR OLD MALE PATIENT WITH HISTORY OF CHRONIC LOW BACK PAIN. PATIENT DESCRIBES THE PAIN SHARP AND HAVING IT ALL THE TIME WITH A PAIN SCORE OF 3/10. PATIENT IS CURRENTLY NOT USING ANY MEDICATION FOR PAIN MANAGEMENT. PATIENT WILL BE MOVING FORWARD WITH A PERMANENT DCS ON 02/18/17. PATIENT STATES THAT ANY TYPE OF ACTIVITY INCREASES THE PAIN IN HIS LOWER BACK AND AT THIS TIME THE ONLY THING THAT HAS AIDED IN PAIN RELIEF IS THE DCS. PATIENT DENIES UNEXPLAINABLE WEIGHT LOSS, FEVER, CHILLS, NEW CHANGES ON HIS URINARY OR BOWEL CONTROL. FALL RISK SCREENING: SCREENING :NO FALLS IN THE PAST YEAR CURRENT MEDICATIONS TAKING PRAZOSIN HCL 5 MG CAPSULE 2 CAPSULES ORALLY ONCE A DAY AT BEDTIME TAKING LISINOPRIL 10 MG TABLET ORALLY DAILY TAKING SEROQUEL 100 MG TABLET 2 TABLETS AT BEDTIME ORALLY ONCE A DAY TAKING SONATA 10 MG CAPSULE 1 CAPSULE AT BEDTIME NEEDED ORALLY ONCE A DAY TAKING VISTARIL 50 MG CAPSULE 2 CAPSULES NEEDED ORALLY EVERY 6 NEEDED NOT-TAKING GABAPENTIN 600 MG TABLET 2 TABLETS ORALLY TWICE A DAY- ER NOT-TAKING KEFLEX 500 MG CAPSULE 1 CAPSULE ORALLY THREE TIMES DAILY NOT-TAKING LEXAPRO 10 MG TABLET 1 TABLET ORALLY ONCE A DAY NOT-TAKING CYMBALTA 60 MG CAPSULE DELAYED RELEASE PARTICLES 1 1/2CAPSULE ORALLY ONCE A DAY 90 MG NOT-TAKING CELEBREX 200 MG CAPSULE 1 CAPSULE ORALLY ONCE A DAY FOR PAIN NOT-TAKING TIZANIDINE HCL 2 MG TABLET 1 TABLET NEEDED ORALLY FOR SPASMSM AND PAIN THREE TIMES A DAY MEDICATION LIST REVIEWED AND RECONCILED WITH THE PATIENT PAST MEDICAL HISTORY HTN 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 SURGICAL HISTORY DCS TRIAL FAMILY HISTORY NO FAMILY HISTORY DOCUMENTED. SOCIAL HISTORY GENERAL: PAIN CLINIC PFS, CLERGY, PUBLIC HEALTH REFERRALS CLERGY REFERRAL NEEDED?NO WAS THE PROVIDER NOTIFIED OF ANY PERTINENT INFO?NO PFS REFERRAL NEEDED?NO PUBLIC HEALTH REFERRAL NEEDED?NO PATIENT: ____. HOSPITALIZATION/MAJOR DIAGNOSTIC PROCEDURE BEHAVIORAL HEALTH 07/2016 BEHAVIORAL HEALTH 08/2016 REVIEW OF SYSTEMS CONSTITUTIONAL: ANY CHANGE IN YOUR MEDICAL CONDITION? NO . CHILLS NO . FEVER NO . INFECTION: DO YOU HAVE NEW INFECTIONS? NO . DO YOU HAVE HISTORY OF MRSA? NO . MUSCULOSKELETAL: ANY NEW PATTERNS OF PAIN OR NUMBNESS? NO . GASTROENTEROLOGY: ANY NEW CHANGE IN BOWEL CONTROL? NO . GENITOURINARY: ANY NEW CHANGE IN BLADDER CONTROL? NO . IS THERE A CHANCE YOU COULD BE ? NO . HEMATOLOGY/LYMPH: DO YOU TAKE ANY BLOOD THINNERS? (FOR EXAMPLE- COUMADIN, PLAVIX, AGGRENOX, PLATEL, PRADAXA, OR XARELTO) NO . WHEN WAS YOUR LAST DOSE? DATE: TIME: . NEUROLOGY: HAVE YOU FALLEN IN THE PAST 6 MONTHS? NO . ANY NEW EXTREMITY NUMBNESS OR WEAKNESS? NO . CARDIOLOGY: DO YOU HAVE A PACEMAKER OR DEFIBRILLATOR? NO . RESPIRATORY: HAVE YOU BEEN SICK IN THE PAST WEEK? NO . FEVER NO . FLU LIKE SYMPTOMS? NO . COUGH NO . INTEGUMENTARY: DO YOU HAVE ANY RASHES OR OPEN SORES? NO . ALLERGIC/IMMUNO: ARE YOU ALLERGIC TO SHELLFISH OR IV DYE? NO . ANY NEW ALLERGIES? NO . PSYCHIATRIC: DO YOU HAVE THOUGHTS OF HURTING YOURSELF OR SOMEONE ELSE? NO . ARE YOU ABUSED, NEGLECTED, OR IN AN UNSAFE ENVIRONMENT? NO . ENDOCRINOLOGY: ARE YOU DIABETIC? NO . OTHER: DO YOU NEED ANY PRESCRIPTIONS? NO . IF YES, PLEASE LIST: ____ . ANY NEW PROBLEMS WITH YOUR MEDICATIONS? NO . WHEN DID YOU LAST EAT? ____ . WHEN DID YOU LAST DRINK? ____ . WHAT DID YOU LAST DRINK? ____ . NAME OF PERSON DRIVING YOU HOME? ____ . DO YOU HAVE ANY OTHER QUESTIONS OR CONCERNS NO . REVIEWED BY: PROVIDER: ESTEBAN SCHNEIDER MD . VITAL SIGNS WT 200 LBS, HT 65 IN, BMI 33.28 INDEX, BP 155/71 MM HG, HR 99 /MIN, RR 16 /MIN, TEMP 98.2 F, OXYGEN SAT % 94%, NA INITIALS AW 1520, REVIEWED BY: NL. EXAMINATION : PATIENT IS ALERT O X 3 AND COOPERATIVE. MR. VILLANUEVA UNABLE TO STRAIGHTEN BACK AND STAYS IN A FLEXED POSITION. PATIENT HAS TENDERNESS IN THE LOWER BACK AND PARASPINAL MUSCLE GROUP AND IN THE CERVICAL AREA AND PARASPINAL MUSCLE GROUP. BANDS OF TISSUE, RESTRICTION OF MOVEMENT, AND PRESENCE OF TRIGGER POINTS IN THE BACK. ALSO TENDERNESS AT THE RIGHT AND LEFT SACROILIAC JOINTS. LEFT LEG IS WEAKER THEN THE RIGHT AT EXTENSION AND FLEXION. MRI OF CERVICAL SPINE ON 12/12/14 SHOW DISC PROTRUSIONS AND STENOSIS AT C5-C6 AND C6-C7. MRI OF THE LUMBAR SPINE DONE ON 03/08/16 SHOW DISC BULGE AT L4-L5. THORACIC MRI DONE ON 11/06/15 SHOWS ADEQUATE ROOM FOR THE LEADS TO PASS THROUGH. LUNGS CLEAR. ASSESSMENTS INTERVERTEBRAL DISC DISORDERS WITH RADICULOPATHY, LUMBAR REGION - M51.16 (PRIMARY) TREATMENT INTERVERTEBRAL DISC DISORDERS WITH RADICULOPATHY, LUMBAR REGION NOTES: WE DISCUSSED SEVERAL ISSUES WITH MR. VILLANUEVA'S PAIN MANAGEMENT CASE. AT THIS TIME THE PATIENT WILL BE MOVING FORWARD WITH THE DCS PERMANENT. PATIENT HAS ADEQUATE RESULTS FROM THE DCS AND REPORTS HAVING OVER 80% RELIEF FROM PAIN WITH THE TRIAL. PATIENT COMPLETED OR PAPERWORK AND WILL RETURN 02/18/17 TO THE OR FOR THE IMPLANT. MR. VILLANUEVA WAS ADVISED TO COME TO CLINIC AT ANY TIME IF HE HAS ANY TROUBLES WITH THE DCS. PATIENT WILL RETURN A WEEK AFTER THE IMPLANT TO CHECK SURGICAL SITES. INSTRUCTIONS WERE GIVEN, QUESTIONS WERE ANSWERED, PATIENT REPORTS UNDERSTANDING AND AGREES WITH THE PLAN. I, KANDI OWENS, DOCUMENTED THE ABOVE INFORMATION ACTING A SCRIBE FOR DR. SCHNEIDER. I HAVE REVIEWED THE ABOVE DOCUMENT, WRITTEN BY KANDI BE AND I VERIFY THAT IT IS ACCURATE. PROCEDURE CODES FA211 ESTABILISHED PATIENT [facility] FACILITY CHARGE G8427 DOC MEDS VERIFIED W/PT OR RE G8730 PAIN ASSESS POS TOOL F/U PLAN DOC DISPOSITION & COMMUNICATION FOLLOW UP 3 WEEKS ELECTRONICALLY SIGNED BY ESTEBAN SCHNEIDER MD ON 02/17/2017 AT 05:00 PM EDT DISCLAIMER : THIS IS A VISIT SUMMARY EXTRACTED FROM THE [employer] CHART. IT IS NOT A COPY OF THE [employer] PROGRESS NOTE. BRYON
== END | disposition home or self-care (01) ==
LOC: M PAIN 15:45
PROVIDERS: ATTEND Anesthesiology
DX: G89.29 Other chronic pain (principal); M51.16 Intervertebral disc disorders with radiculopathy, lumbar region; I10 Essential (primary) hypertension; G47.30 Sleep apnea, unspecified; F43.10 Post-traumatic stress disorder, unspecified; F41.9 Anxiety disorder, unspecified; F33.9 Major depressive disorder, recurrent, unspecified; Z79.899 Other long term (current) drug therapy

== ENCOUNTER 2017-02-18 10:01 | Day surgery (SDC) | payer OTHER ==
[~2017-02-18] VITALS: Ht 165.1 cm; Wt 90.7 kg
[~2017-02-18 10:01] MED LIST changes: -OXYC15TA76 PO; -PRAZ5CAP PO
[2017-02-18] MEDS ORDERED: ceFAZolin SOD 1 GM in D5W MINI-BAG PLUS 50 ML IV ONE (10:15)
[2017-02-18] MEDS ORDERED: LR 1,000 ML IV SCH ×2 (10:15→16:30)
[2017-02-18] MEDS ORDERED: PROPOFOL 200 MG/20 ML VIAL As Ordered ONE ×3 (11:39→15:31)
[2017-02-18] MEDS ORDERED: MIDAZOLAM INJ 2 MG/2 ML VIAL (J2250) As Ordered ONE ×2 (11:39→14:00)
[2017-02-18] MEDS ORDERED: fentaNYL 100 MCG/2 ML INJECTION (J3010) As Ordered ONE ×2 (11:39→14:34)
[2017-02-18] MEDS ORDERED: LIDOCAINE 2% INJ 100 MG/5 ML SDV (FOR ANES.) As Ordered ONE (11:39)
[2017-02-18] MEDS ORDERED: LIDOCAINE W/EPINEPHRINE 1% 20ML VIAL As Ordered ONE (13:39)
[2017-02-18] MEDS ORDERED: THROMBIN SOLN 20,000 UNITS KIT As Ordered ONE (13:39)
[2017-02-18] MEDS ORDERED: BACITRACIN PWD 50,000 UNITS VIAL As Ordered ONE (13:39)
[2017-02-18] MEDS ORDERED: ONDANSETRON 4MG/2ML VIAL (J2405) As Ordered ONE (15:28)
--- NOTE | 2017-02-18 16:05 | REP ---
C-ARM VIEW THORACIC SPINE REGION: C-ARM view thoracic spine region performed. Dorsal column stimulator leads are present in the lower thoracic region. 5 minutes 47 seconds of fluoroscopic time was utilized for the procedure. Signed by aNman Mitchell MD 02/18/2017 08:12 P
[2017-02-18] MEDS ORDERED: oxyCODONE 5MG TAB As Ordered ONE (16:27)
[2017-02-18] MEDS ORDERED: MEPERIDINE INJ 25 MG/ML VIAL (J2175) IV PRN (16:30)
[2017-02-18] MEDS ORDERED: METOCLOPRAMIDE INJ 10MG/2ML VIAL (J2765) IV PRN (16:30)
[2017-02-18] MEDS: oxyCODONE 5MG TAB PO PRN ×3 (16:30→19:54)
[2017-02-18] MEDS ORDERED: PERCOCET 5MG/325MG TAB PO PRN (16:30)
[2017-02-18] MEDS ORDERED: fentaNYL 100 MCG/2 ML INJECTION (J3010) IV PRN (16:30)
[2017-02-18] MEDS ORDERED: ONDANSETRON 4MG/2ML VIAL (J2405) IV PRN (16:30)
[2017-02-18 20:00] VITALS: BP 122/71
[2017-02-18] MEDS ORDERED: PRAZ5CAP PO (20:27)
[2017-02-18 21:00] VITALS: BP 128/77
[2017-02-18] MEDS ORDERED: QUEtiapine FUMARATE 200 MG TAB PO SCH (21:00)
[2017-02-18] MEDS ORDERED: SONATA 10 MG PO SCH (21:00)
[2017-02-18] MEDS ORDERED: PRAZOSIN 5 MG PO SCH (21:00)
--- NOTE | 2017-02-18 21:22 | CR ---
DATE OF CONSULTATION: 02/18/2017 REASON FOR CONSULTATION: Medical management. CONSULTATION REPORT FOR: Dr. Hernandez. PRIMARY CARE PROVIDER: The patient goes to [facility]. HISTORY OF PRESENT ILLNESS: The patient is a 41-year-old male who presented for a spinal stimulator placement due to leg pain. The patient tolerated procedure well. We were asked to follow overnight for possible medical problems. The patient has past medical history for depression and anxiety. REVIEW OF SYSTEMS: 12-point review of system was obtained all of which was negative except for those mentioned above. PAST MEDICAL HISTORY: Significant for anxiety, depression and the patient has chronic leg pain. PAST SURGICAL HISTORY: None. SOCIAL HISTORY: Patient is a [place] resident. . No tobacco use. Drinks occasionally. ALLERGIES: To TRAMADOL, reaction hives. HOME MEDICATIONS: Including: - gabapentin - paroxetine - prazosin - lisinopril 10 mg daily - Seroquel 200 mg at bedtime - Sonata 10 mg by mouth nightly as needed for sleep - Trintellix 10 mg by mouth daily PHYSICAL FINDINGS: Vital signs: Temperature 97.1, pulse 79, respiratory rate 16, blood pressure is 121/77, pulse oximetry 100% on room air. HEENT: Pupils equal, round, reactive to light and accommodation. Neck supple. No jugular venous distention (JVD). Lungs: Clear to auscultation bilaterally. Abdomen: Soft, nontender, nondistended. Extremities: No clubbing, cyanosis or edema. LABORATORY FINDINGS: There is no laboratory findings at this time, they were ordered and reviewed outpatient prior to procedure. ASSESSMENT/PLAN: 1. Chronic leg pain status post spinal stimulator placement by Dr. Hernandez. Patient tolerated procedure well. He will be monitored overnight and likely discharged in the morning. 2. History of anxiety. Will resume the patient's home medications. 3. Hypertension. Blood pressure is currently stable at 121/77. The patient normally takes his lisinopril in the morning. We will resume.
[2017-02-18] MEDS: ceFAZolin SOD 1 GM in D5W MINI-BAG PLUS 50 ML IV SCH (21:51)
[2017-02-18 22:00] VITALS: BP 115/79
[2017-02-18] MEDS ORDERED: CARISOPRODOL 350 MG TAB PO ONE (22:00)
[2017-02-18 23:00] VITALS: BP 110/60
[2017-02-19 02:00] VITALS: BP 102/65
[2017-02-19] MEDS: oxyCODONE 5MG TAB PO PRN ×2 (02:16→06:26)
[2017-02-19] MEDS: ceFAZolin SOD 1 GM in D5W MINI-BAG PLUS 50 ML IV SCH (05:32)
[2017-02-19 06:00] VITALS: BP 123/60
[2017-02-19] MEDS ORDERED: TRINTELLIX 10 MG PO SCH (09:00)
[2017-02-19] MEDS ORDERED: LISINOPRIL 10 MG TAB PO SCH (09:00)
[2017-02-19] MEDS ORDERED: OXYC15TA76 PO (09:06)
[2017-02-19 09:45] VITALS: BP 123/60
--- NOTE | 2017-02-25 11:27 | RO ---
DATE OF PROCEDURE: 02/18/2017 PREPROCEDURE DIAGNOSIS: Lumbar radiculopathy. POSTPROCEDURE DIAGNOSIS: Lumbar radiculopathy. PROCEDURE: Spinal column stimulator implant. SURGEON: Derek Logan MD COPING MACHINE ASSEMBLER: PRETTY Ferguson ANESTHESIA: Local with monitored anesthesia care. COMPLICATIONS: None. PREPROCEDURE NOTE: Mr. Gomez is a 42-year-old male patient with history of chronic low back pain. The patient has tried medication management and intervention and therapy but the pain has persisted. He did a spinal column stimulator trial and he reported more than 80% improvement in his condition. He has expressed that he wants to have an implant of the spinal column stimulator. I have discussed with Mr. Gomez, the risks, alternatives and benefits associated with this procedure and the patient expressed that he would like to proceed. The patient denies unexplained weight loss, fevers, chills, changes in urinary or bowel control. DESCRIPTION OF PROCEDURE: Procedure note: After consent was reviewed with the patient, the patient was brought to the procedure room. The thoracolumbar area was cleaned with Betadine solution and draped aseptically. The procedure was done under sterile conditions. Under fluoroscopic guidance, target point was selected at the level of L1 to L3. The patient received cefazolin 1 gram IV as prophylaxis. Over the target area, I did an incision and I exposed the thoracolumbar fascia. After appropriate exposure of the thoracolumbar fascia and checking for hemostasis, the target first was selected at the interlaminar lamina level of T12-L1. I used an Entrada CX needle, and I touched the right lamina of L1 and then by loss of resistance technique and using the introducer, I reached the epidural space approximately 5 cm deep into the skin. Then a 16 contact lead from the Infinion system from [employer] was advanced through the Entrada needle and we reached the posteromedial aspect of the epidural space, advancing the lead to the level of T5. After the lead was in the appropriate position, a decision was made to place a second lead using a second Entrada CX needle, I touched the left lamina of L1 and then by loss of resistance techniques, I reached the epidural space 5 cm deep into the skin and then I passed and advanced a second 16 contact lead from the Infinion system from [employer] through this Entrada needle to the epidural space and I put a second lead parallel to the first one. After appropriate position of the leads was achieved in AP and lateral views, I attached extension cables to the leads, which were attached to the computer system from [employer], and I started to do programming. This was a simple programming where I changed the position of the leads. I changed the contact leads, the vortex leads for the impedance. After the patient was satisfied with the position of the leads, I did x-rays and the position was identified to be at T5, T6, and T7. The positions were kept in the patient's electronic medical record for future reference. I removed the extension cable and the stylet and then I secured the leads to the thoracolumbar fascia using the Fixate system. After the leads were secured to the thoracolumbar fascia, I secured the leads to the sleeves, securing the Clik X anchor. After the leads were secure, I started to do the battery pocket, which I did 1.5 cm deep into the skin. I checked for hemostasis, and I did a tunnel between the midline incision and the battery incision. The leads were advanced through the tunnels to the battery site. I attached the battery to the leads. I checked again the impedance of the system, which was working appropriately; so I screwed the leads to the battery. I checked for hemostasis. I cleaned all the area, and then we started to close both the midline incision and the battery site incision with inverted intermittent sutures of #0 Vicryl, and then with Vicryl #3-0, and finally the skin was closed with Dermabond surgical glue. There was no evidence of blood, paresthesia, or cerebrospinal fluid. There were no complications. The patient was sent to the recovery room. He was moving extremities and doing well. PRETTY Ferguson, assisted me, during the procedure, especially working with the battery pocket and during the closure process of the midline incision and at the battery site. There were no complications.
== END 2017-02-19 10:00 | disposition home or self-care (01) ==
LOC: M SDC 10:01 → M MS5PR 18:55 → M SDC 02-19 10:00
PROVIDERS: ATTEND Anesthesiology
DX: M54.16 Radiculopathy, lumbar region (principal); I10 Essential (primary) hypertension; M12.9 Arthropathy, unspecified; M50.20 Other cervical disc displacement, unspecified cervical region; F32.9 Major depressive disorder, single episode, unspecified; F41.9 Anxiety disorder, unspecified; F43.10 Post-traumatic stress disorder, unspecified; G47.33 Obstructive sleep apnea (adult) (pediatric); N28.1 Cyst of kidney, acquired; M79.604 Pain in right leg; G89.29 Other chronic pain; Z79.899 Other long term (current) drug therapy; Z72.0 Tobacco use
CPT/HCPCS: 63655; 63685; 77002; C1778; C1820; J0690; J2250; J2405; J3010; L9900

== ENCOUNTER → 2017-02-19 | Outpatient (CLI) | payer OTHER ==
[~2017-02-19] MED LIST changes: +OXYC15TA76 PO; +PRAZ5CAP PO
--- NOTE | 2017-02-24 23:40 | ECWPNPC ---
PATIENT NAME: ALLY VILLANUEVA : 1975 GENDER: MALE VISIT DATE: 02/19/2017 DISCHARGE DATE: 02/19/17 1050 VISIT LOCKED DATE TIME: PHYSICIAN: ESTEBAN SCHNEIDER RESOURCE: ESTEBAN SCHNEIDER REASON FOR APPOINTMENT 1. POST DCS HISTORY OF PRESENT ILLNESS HISTORY OF PRESENT ILLNESS: PAIN THE PATIENT DESCRIBES THE PAIN... 41 YEAR OLD MALE PATIENT WITH HISTORY OF CHRONIC LOW BACK PAIN. PATIENT DESCRIBES THE PAIN ACHING, BURNING, SHARP, STABBING, TENDER, AND THROBBING WITH A PAIN SCORE OF 8/10 ON TODAY'S VISIT. PATIENT HAD A DCS PERMANENT PUT IN ON 02-18-2017, AND STATES THAT HE IS IN A LOT OF POST SURGICAL PAIN. PATIENT DENIES UNEXPLAINABLE WEIGHT LOSS, FEVER, CHILLS, NEW CHANGES ON HIS URINARY OR BOWEL CONTROL. FALL RISK SCREENING: SCREENING :NO FALLS IN THE PAST YEAR CURRENT MEDICATIONS TAKING PRAZOSIN HCL 5 MG CAPSULE 2 CAPSULES ORALLY ONCE A DAY AT BEDTIME TAKING LISINOPRIL 10 MG TABLET ORALLY DAILY TAKING SEROQUEL 100 MG TABLET 2 TABLETS AT BEDTIME ORALLY ONCE A DAY TAKING SONATA 10 MG CAPSULE 1 CAPSULE AT BEDTIME NEEDED ORALLY ONCE A DAY TAKING VISTARIL 50 MG CAPSULE 2 CAPSULES NEEDED ORALLY EVERY 6 NEEDED NOT-TAKING GABAPENTIN 600 MG TABLET 2 TABLETS ORALLY TWICE A DAY- ER NOT-TAKING KEFLEX 500 MG CAPSULE 1 CAPSULE ORALLY THREE TIMES DAILY NOT-TAKING LEXAPRO 10 MG TABLET 1 TABLET ORALLY ONCE A DAY NOT-TAKING CYMBALTA 60 MG CAPSULE DELAYED RELEASE PARTICLES 1 1/2CAPSULE ORALLY ONCE A DAY 90 MG NOT-TAKING CELEBREX 200 MG CAPSULE 1 CAPSULE ORALLY ONCE A DAY FOR PAIN NOT-TAKING TIZANIDINE HCL 2 MG TABLET 1 TABLET NEEDED ORALLY FOR SPASMSM AND PAIN THREE TIMES A DAY MEDICATION LIST REVIEWED AND RECONCILED WITH THE PATIENT PAST MEDICAL HISTORY HTN 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 SURGICAL HISTORY DCS TRIAL FAMILY HISTORY NO FAMILY HISTORY DOCUMENTED. SOCIAL HISTORY GENERAL: PAIN CLINIC PFS, CLERGY, PUBLIC HEALTH REFERRALS CLERGY REFERRAL NEEDED?NO WAS THE PROVIDER NOTIFIED OF ANY PERTINENT INFO?NO PFS REFERRAL NEEDED?NO PUBLIC HEALTH REFERRAL NEEDED?NO PATIENT: ____. HOSPITALIZATION/MAJOR DIAGNOSTIC PROCEDURE BEHAVIORAL HEALTH 07/2016 BEHAVIORAL HEALTH 08/2016 REVIEW OF SYSTEMS CONSTITUTIONAL: ANY CHANGE IN YOUR MEDICAL CONDITION? NO . CHILLS NO . FEVER NO . INFECTION: DO YOU HAVE NEW INFECTIONS? NO . DO YOU HAVE HISTORY OF MRSA? NO . MUSCULOSKELETAL: ANY NEW PATTERNS OF PAIN OR NUMBNESS? NO . GASTROENTEROLOGY: ANY NEW CHANGE IN BOWEL CONTROL? NO . GENITOURINARY: ANY NEW CHANGE IN BLADDER CONTROL? NO . IS THERE A CHANCE YOU COULD BE ? NO . HEMATOLOGY/LYMPH: DO YOU TAKE ANY BLOOD THINNERS? (FOR EXAMPLE- COUMADIN, PLAVIX, AGGRENOX, PLATEL, PRADAXA, OR XARELTO) NO . WHEN WAS YOUR LAST DOSE? DATE: TIME: . NEUROLOGY: HAVE YOU FALLEN IN THE PAST 6 MONTHS? NO . ANY NEW EXTREMITY NUMBNESS OR WEAKNESS? NO . CARDIOLOGY: DO YOU HAVE A PACEMAKER OR DEFIBRILLATOR? NO . RESPIRATORY: HAVE YOU BEEN SICK IN THE PAST WEEK? NO . FEVER NO . FLU LIKE SYMPTOMS? NO . COUGH NO . INTEGUMENTARY: DO YOU HAVE ANY RASHES OR OPEN SORES? NO . ALLERGIC/IMMUNO: ARE YOU ALLERGIC TO SHELLFISH OR IV DYE? NO . ANY NEW ALLERGIES? NO . PSYCHIATRIC: DO YOU HAVE THOUGHTS OF HURTING YOURSELF OR SOMEONE ELSE? NO . ARE YOU ABUSED, NEGLECTED, OR IN AN UNSAFE ENVIRONMENT? NO . ENDOCRINOLOGY: ARE YOU DIABETIC? NO . OTHER: DO YOU NEED ANY PRESCRIPTIONS? NO . IF YES, PLEASE LIST: ____ . ANY NEW PROBLEMS WITH YOUR MEDICATIONS? NO . WHEN DID YOU LAST EAT? ____ . WHEN DID YOU LAST DRINK? ____ . WHAT DID YOU LAST DRINK? ____ . NAME OF PERSON DRIVING YOU HOME? ____ . DO YOU HAVE ANY OTHER QUESTIONS OR CONCERNS NO . REVIEWED BY: PROVIDER: ESTEBAN SCHNEIDER MD . VITAL SIGNS WT 200 LBS, HT 65 IN, BMI 33.28 INDEX, BP 123/80 MM HG, HR 95 /MIN, RR 18 /MIN, TEMP 97.9 F, OXYGEN SAT % 95, SAFE IN ENV? (Y/N) YES, REVIEWED BY: KG. EXAMINATION : PATIENT IS ALERT O X 3 AND COOPERATIVE. THERE IS NO SIGN OF INFECTION ON THE SURGICAL SITE. ASSESSMENTS LOW BACK PAIN - M54.5 (PRIMARY) TREATMENT LOW BACK PAIN NOTES: WE DISCUSSED SEVERAL ISSUES WITH MR. VILLANUEVA'S PAIN MANAGEMENT CASE. AT THIS TIME DUE TO THE POST SURGICAL PAIN, I WILL WRITE A PRESCRIPTION FOR OXYCODONE 5 MG. PATIENT WILL UP WITH ME IN 1 WEEK. INSTRUCTIONS WERE GIVEN, QUESTIONS WERE ANSWERED, PATIENT REPORTS UNDERSTANDING AND AGREES WITH THE PLAN. I, SHAREE GUERRERO, DOCUMENTED THE ABOVE INFORMATION ACTING A SCRIBE FOR DR. SCHNEIDER. I HAVE REVIEWED THE ABOVE DOCUMENT, WRITTEN BY SHAREE GUERRERO SCRIBJas AND I VERIFY THAT IT IS ACCURATE. DISPOSITION & COMMUNICATION FOLLOW UP 1 WEEK ELECTRONICALLY SIGNED BY ESTEBAN SCHNEIDER MD ON 02/24/2017 AT 11:37 AM EDT DISCLAIMER : THIS IS A VISIT SUMMARY EXTRACTED FROM THE [employer] CHART. IT IS NOT A COPY OF THE [employer] PROGRESS NOTE. BRYON
--- NOTE | 2017-02-25 11:27 | RO ---
DATE OF PROCEDURE: 02/18/2017 PREPROCEDURE DIAGNOSIS: Lumbar radiculopathy. POSTPROCEDURE DIAGNOSIS: Lumbar radiculopathy. PROCEDURE: Spinal column stimulator implant. SURGEON: Derek Logan MD MANAGER MANUFACTURING: PRETTY Ferguson ANESTHESIA: Local with monitored anesthesia care. COMPLICATIONS: None. PREPROCEDURE NOTE: Mr. Gomez is a 42-year-old male patient with history of chronic low back pain. The patient has tried medication management and intervention and therapy but the pain has persisted. He did a spinal column stimulator trial and he reported more than 80% improvement in his condition. He has expressed that he wants to have an implant of the spinal column stimulator. I have discussed with Mr. Gomez, the risks, alternatives and benefits associated with this procedure and the patient expressed that he would like to proceed. The patient denies unexplained weight loss, fevers, chills, changes in urinary or bowel control. DESCRIPTION OF PROCEDURE: Procedure note: After consent was reviewed with the patient, the patient was brought to the procedure room. The thoracolumbar area was cleaned with Betadine solution and draped aseptically. The procedure was done under sterile conditions. Under fluoroscopic guidance, target point was selected at the level of L1 to L3. The patient received cefazolin 1 gram IV as prophylaxis. Over the target area, I did an incision and I exposed the thoracolumbar fascia. After appropriate exposure of the thoracolumbar fascia and checking for hemostasis, the target first was selected at the interlaminar lamina level of T12-L1. I used an Entrada CX needle, and I touched the right lamina of L1 and then by loss of resistance technique and using the introducer, I reached the epidural space approximately 5 cm deep into the skin. Then a 16 contact lead from the Infinion system from [employer] was advanced through the Entrada needle and we reached the posteromedial aspect of the epidural space, advancing the lead to the level of T5. After the lead was in the appropriate position, a decision was made to place a second lead using a second Entrada CX needle, I touched the left lamina of L1 and then by loss of resistance techniques, I reached the epidural space 5 cm deep into the skin and then I passed and advanced a second 16 contact lead from the Infinion system from [employer] through this Entrada needle to the epidural space and I put a second lead parallel to the first one. After appropriate position of the leads was achieved in AP and lateral views, I attached extension cables to the leads, which were attached to the computer system from [employer], and I started to do programming. This was a simple programming where I changed the position of the leads. I changed the contact leads, the vortex leads for the impedance. After the patient was satisfied with the position of the leads, I did x-rays and the position was identified to be at T5, T6, and T7. The positions were kept in the patient's electronic medical record for future reference. I removed the extension cable and the stylet and then I secured the leads to the thoracolumbar fascia using the Fixate system. After the leads were secured to the thoracolumbar fascia, I secured the leads to the sleeves, securing the Clik X anchor. After the leads were secure, I started to do the battery pocket, which I did 1.5 cm deep into the skin. I checked for hemostasis, and I did a tunnel between the midline incision and the battery incision. The leads were advanced through the tunnels to the battery site. I attached the battery to the leads. I checked again the impedance of the system, which was working appropriately; so I screwed the leads to the battery. I checked for hemostasis. I cleaned all the area, and then we started to close both the midline incision and the battery site incision with inverted intermittent sutures of #0 Vicryl, and then with Vicryl #3-0, and finally the skin was closed with Dermabond surgical glue. There was no evidence of blood, paresthesia, or cerebrospinal fluid. There were no complications. The patient was sent to the recovery room. He was moving extremities and doing well. PRETTY Ferguson, assisted me, during the procedure, especially working with the battery pocket and during the closure process of the midline incision and at the battery site. There were no complications.
== END | disposition home or self-care (01) ==
LOC: M PAIN 10:00
PROVIDERS: ATTEND Anesthesiology
DX: G89.29 Other chronic pain (principal); M54.5 Low back pain; G54.0 Brachial plexus disorders; R51 Headache; G47.30 Sleep apnea, unspecified; F43.10 Post-traumatic stress disorder, unspecified; F41.9 Anxiety disorder, unspecified; F33.9 Major depressive disorder, recurrent, unspecified; Z79.899 Other long term (current) drug therapy

== ENCOUNTER → 2017-02-26 | Outpatient (CLI) | payer OTHER ==
--- NOTE | 2017-03-10 23:33 | ECWPNPC ---
PATIENT NAME: ALLY VILLANUEVA : 1975 GENDER: MALE VISIT DATE: 02/26/2017 DISCHARGE DATE: 02/26/17 1256 VISIT LOCKED DATE TIME: PHYSICIAN: ESTEBAN SCHNEIDER RESOURCE: ESTEBAN SCHNEIDER REASON FOR APPOINTMENT 1. SIDE PAIN HISTORY OF PRESENT ILLNESS HISTORY OF PRESENT ILLNESS: PAIN THE PATIENT DESCRIBES THE PAIN... 41 YEAR OLD MALE PATIENT WITH HISTORY OF CHRONIC LOW BACK PAIN. PATIENT DESCRIBES THE PAIN BURNING, SHARP, AND STABBING WITH A PAIN SCORE OF 8/10 ON TODAY'S VISIT. PATIENT HAD A DCS PERMANENT PUT IN ON 02-18-2017 AND STATES THAT THE DCS IS PROVIDING GOOD PAIN RELIEF WITH THE PAIN DOWN THE LEGS. PATIENT REPORTS OF HAVING INTENSE PAIN IN THE RIGHT LOW BACK AREA, THE PAIN HAS BEEN THERE SINCE THE SURGERY BUT LATELY IT HAS BEEN GETTING WORST. PATIENT STATES THAT THE PAIN WILL COME OUT OF NOWHERE AND IS NOT ASSOCIATED WITH ANY SPECIFIC MOVEMENT, WALKING, SLIGHTLY BENDING THE BACK, LAYING ON THE COUCH, ETC. PATIENT DENIES UNEXPLAINABLE WEIGHT LOSS, FEVER, CHILLS, NEW CHANGES ON HIS URINARY OR BOWEL CONTROL. FALL RISK SCREENING: SCREENING :NO FALLS IN THE PAST YEAR CURRENT MEDICATIONS TAKING PRAZOSIN HCL 5 MG CAPSULE 2 CAPSULES ORALLY ONCE A DAY AT BEDTIME TAKING LISINOPRIL 10 MG TABLET ORALLY DAILY TAKING SEROQUEL 100 MG TABLET 2 TABLETS AT BEDTIME ORALLY ONCE A DAY TAKING SONATA 10 MG CAPSULE 1 CAPSULE AT BEDTIME NEEDED ORALLY ONCE A DAY TAKING VISTARIL 50 MG CAPSULE 2 CAPSULES NEEDED ORALLY EVERY 6 NEEDED NOT-TAKING GABAPENTIN 600 MG TABLET 2 TABLETS ORALLY TWICE A DAY- ER NOT-TAKING KEFLEX 500 MG CAPSULE 1 CAPSULE ORALLY THREE TIMES DAILY NOT-TAKING LEXAPRO 10 MG TABLET 1 TABLET ORALLY ONCE A DAY NOT-TAKING CYMBALTA 60 MG CAPSULE DELAYED RELEASE PARTICLES 1 1/2CAPSULE ORALLY ONCE A DAY 90 MG NOT-TAKING CELEBREX 200 MG CAPSULE 1 CAPSULE ORALLY ONCE A DAY FOR PAIN NOT-TAKING TIZANIDINE HCL 2 MG TABLET 1 TABLET NEEDED ORALLY FOR SPASMSM AND PAIN THREE TIMES A DAY MEDICATION LIST REVIEWED AND RECONCILED WITH THE PATIENT PAST MEDICAL HISTORY HTN 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 SURGICAL HISTORY DCS TRIAL FAMILY HISTORY NO FAMILY HISTORY DOCUMENTED. SOCIAL HISTORY GENERAL: PAIN CLINIC PFS, CLERGY, PUBLIC HEALTH REFERRALS CLERGY REFERRAL NEEDED?NO WAS THE PROVIDER NOTIFIED OF ANY PERTINENT INFO?NO PFS REFERRAL NEEDED?NO PUBLIC HEALTH REFERRAL NEEDED?NO PATIENT: ____. HOSPITALIZATION/MAJOR DIAGNOSTIC PROCEDURE BEHAVIORAL HEALTH 07/2016 BEHAVIORAL HEALTH 08/2016 REVIEW OF SYSTEMS CONSTITUTIONAL: ANY CHANGE IN YOUR MEDICAL CONDITION? NO . CHILLS NO . FEVER NO . INFECTION: DO YOU HAVE NEW INFECTIONS? NO . DO YOU HAVE HISTORY OF MRSA? NO . MUSCULOSKELETAL: ANY NEW PATTERNS OF PAIN OR NUMBNESS? YES, RIGHT LOWER THORACIC AREA, POST OP DCS. . GASTROENTEROLOGY: ANY NEW CHANGE IN BOWEL CONTROL? NO . GENITOURINARY: ANY NEW CHANGE IN BLADDER CONTROL? NO . IS THERE A CHANCE YOU COULD BE ? NO . HEMATOLOGY/LYMPH: DO YOU TAKE ANY BLOOD THINNERS? (FOR EXAMPLE- COUMADIN, PLAVIX, AGGRENOX, PLATEL, PRADAXA, OR XARELTO) NO . WHEN WAS YOUR LAST DOSE? DATE: TIME: . NEUROLOGY: HAVE YOU FALLEN IN THE PAST 6 MONTHS? NO . ANY NEW EXTREMITY NUMBNESS OR WEAKNESS? NO . CARDIOLOGY: DO YOU HAVE A PACEMAKER OR DEFIBRILLATOR? NO . RESPIRATORY: HAVE YOU BEEN SICK IN THE PAST WEEK? NO . FEVER NO . FLU LIKE SYMPTOMS? NO . COUGH NO . INTEGUMENTARY: DO YOU HAVE ANY RASHES OR OPEN SORES? NO . ALLERGIC/IMMUNO: ARE YOU ALLERGIC TO SHELLFISH OR IV DYE? NO . ANY NEW ALLERGIES? NO . PSYCHIATRIC: DO YOU HAVE THOUGHTS OF HURTING YOURSELF OR SOMEONE ELSE? NO . ARE YOU ABUSED, NEGLECTED, OR IN AN UNSAFE ENVIRONMENT? NO . ENDOCRINOLOGY: ARE YOU DIABETIC? NO . OTHER: DO YOU NEED ANY PRESCRIPTIONS? NO . IF YES, PLEASE LIST: ____ . ANY NEW PROBLEMS WITH YOUR MEDICATIONS? NO . WHEN DID YOU LAST EAT? ____ . WHEN DID YOU LAST DRINK? ____ . WHAT DID YOU LAST DRINK? ____ . NAME OF PERSON DRIVING YOU HOME? ____ . DO YOU HAVE ANY OTHER QUESTIONS OR CONCERNS NO . REVIEWED BY: PROVIDER: ESTEBAN SCHNEIDER MD . VITAL SIGNS WT 204.2 LBS, HT 65 IN, BMI 33.98 INDEX, BP 137/84 MM HG, HR 81 /MIN, RR 16 /MIN, TEMP 97.0 F, OXYGEN SAT % 98%, NA INITIALS TL 1151, REVIEWED BY: CM. EXAMINATION : PATIENT IS ALERT O X 3 AND COOPERATIVE. NO SIGNS OF INFECTION ON THE SURGICAL SITE. MRI OF THE LUMBAR SPINE DONE ON 03/08/16 SHOW DISC BULGE AT L4-L5. ASSESSMENTS LOW BACK PAIN - M54.5 (PRIMARY) INTERVERTEBRAL DISC DISORDERS WITH RADICULOPATHY, LUMBAR REGION - M51.16 TREATMENT LOW BACK PAIN NOTES: WE DISCUSSED SEVERAL ISSUES WITH MR. VILLANUEVA'S PAIN MANAGEMENT CASE. ELEAZAR DE LA GARZA FROM [employer] SAW THE PATIENT TODAY TO MAKE ADJUSTMENTS. I DISCUSSED WITH THE PATIENT THAT HIS PAIN COULD BE CAUSED BY THE POCKET OF WHERE THE BATTERY IS LOCATED. INFORMED THE PATIENT O GIVE IT SOME TIME TO HEAL. AT THIS TIME I WILL PRESCRIBE HYDROCODONE FOR THE PAIN TODAY, MDD 6. ADVISED PATIENT SHOULD THE SURGICAL SITE BECOME RED OR SWOLLEN OR HOT, IMMEDIATELY GO TO THE ER. PATIENT WILL FOLLOW UP WITH ME IN 1 WEEK. INSTRUCTIONS WERE GIVEN, QUESTIONS WERE ANSWERED, PATIENT REPORTS UNDERSTANDING AND AGREES WITH THE PLAN. I, SHAREE GUERRERO, DOCUMENTED THE ABOVE INFORMATION ACTING A SCRIBE FOR DR. SCHNEIDER. I HAVE REVIEWED THE ABOVE DOCUMENT, WRITTEN BY SHAREE GUERRERO SCRIBE AND I VERIFY THAT IT IS ACCURATE. ,. PROCEDURE CODES FA211 ESTABILISHED PATIENT [facility] FACILITY CHARGE G8730 PAIN ASSESS POS TOOL F/U PLAN DOC [id number] DOC MEDS VERIFIED W/PT OR RE DISPOSITION & COMMUNICATION FOLLOW UP 1 WEEK ELECTRONICALLY SIGNED BY ESTEBAN SCHNEIDER MD ON 03/10/2017 AT 10:40 AM EDT DISCLAIMER : THIS IS A VISIT SUMMARY EXTRACTED FROM THE [employer] CHART. IT IS NOT A COPY OF THE [employer] PROGRESS NOTE. MTDD
== END ==
LOC: M PAIN 12:20
PROVIDERS: ATTEND Anesthesiology
DX: G89.29 Other chronic pain (principal); M54.5 Low back pain; M51.16 Intervertebral disc disorders with radiculopathy, lumbar region; I10 Essential (primary) hypertension; G47.30 Sleep apnea, unspecified; F43.10 Post-traumatic stress disorder, unspecified; F41.9 Anxiety disorder, unspecified; F33.9 Major depressive disorder, recurrent, unspecified; Z79.899 Other long term (current) drug therapy; F17.210 Nicotine dependence, cigarettes, uncomplicated

== ENCOUNTER → 2017-03-04 | Outpatient (CLI) | payer OTHER ==
--- NOTE | 2017-03-10 23:50 | ECWPNPC ---
PATIENT NAME: ALLY VILLANUEVA : 1975 GENDER: MALE VISIT DATE: 03/04/2017 DISCHARGE DATE: 03/04/17 1418 VISIT LOCKED DATE TIME: PHYSICIAN: ESTEBAN SCHNEIDER RESOURCE: ESTEBAN SCHNEIDER REASON FOR APPOINTMENT 1. LOW BACK PAIN HISTORY OF PRESENT ILLNESS HISTORY OF PRESENT ILLNESS: PAIN THE PATIENT DESCRIBES THE PAIN... 41 YEAR OLD MALE PATIENT WITH HISTORY OF CHRONIC LOW BACK PAIN. PATIENT DESCRIBES THE PAIN BURNING, SHARP, AND STABBING WITH A PAIN SCORE OF 4/10 ON TODAY'S VISIT. PATIENT HAD A DCS PERMANENT PUT IN ON 02/18/2017 AND STATES THAT THE DCS IS PROVIDING GOOD PAIN RELIEF WITH THE PAIN DOWN THE LEGS. PATIENT REPORTS OF HAVING INTENSE PAIN IN THE RIGHT LOW BACK AREA, THE PAIN HAS BEEN THERE SINCE THE SURGERY BUT HAS EASED UP BUT IS STILL PRESENT. PATIENT STATES THAT THE PAIN WILL COME OUT OF NOWHERE AND IS NOT ASSOCIATED WITH ANY SPECIFIC MOVEMENT, WALKING, SLIGHTLY BENDING THE BACK, LAYING ON THE COUCH, ETC. PATIENT DENIES UNEXPLAINABLE WEIGHT LOSS, FEVER, CHILLS, NEW CHANGES ON HIS URINARY OR BOWEL CONTROL. FALL RISK SCREENING: SCREENING :NO FALLS IN THE PAST YEAR CURRENT MEDICATIONS TAKING PRAZOSIN HCL 5 MG CAPSULE 2 CAPSULES ORALLY ONCE A DAY AT BEDTIME TAKING LISINOPRIL 10 MG TABLET ORALLY DAILY TAKING SEROQUEL 100 MG TABLET 2 TABLETS AT BEDTIME ORALLY ONCE A DAY TAKING SONATA 10 MG CAPSULE 1 CAPSULE AT BEDTIME NEEDED ORALLY ONCE A DAY TAKING VISTARIL 50 MG CAPSULE 2 CAPSULES NEEDED ORALLY EVERY 6 NEEDED TAKING HYDROCODONE-ACETAMINOPHEN 5-325 MG TABLET 1 TABLET NEEDED ORALLY EVERY 4 HRS NOT-TAKING GABAPENTIN 600 MG TABLET 2 TABLETS ORALLY TWICE A DAY- ER NOT-TAKING KEFLEX 500 MG CAPSULE 1 CAPSULE ORALLY THREE TIMES DAILY NOT-TAKING LEXAPRO 10 MG TABLET 1 TABLET ORALLY ONCE A DAY NOT-TAKING CYMBALTA 60 MG CAPSULE DELAYED RELEASE PARTICLES 1 1/2CAPSULE ORALLY ONCE A DAY 90 MG NOT-TAKING CELEBREX 200 MG CAPSULE 1 CAPSULE ORALLY ONCE A DAY FOR PAIN NOT-TAKING TIZANIDINE HCL 2 MG TABLET 1 TABLET NEEDED ORALLY FOR SPASMSM AND PAIN THREE TIMES A DAY MEDICATION LIST REVIEWED AND RECONCILED WITH THE PATIENT PAST MEDICAL HISTORY HTN 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 SURGICAL HISTORY DCS TRIAL PERMANENT DCS 01/2017 SOCIAL HISTORY GENERAL: TOBACCO USE ARE YOU A:CURRENT SMOKER HOW MANY CIGARETTES A DAY DO YOU SMOKE?5 OR LESS HOW SOON AFTER YOU WAKE UP DO YOU SMOKE YOUR FIRST CIGARETTE?6-30 MIN HOW OFTEN DO YOU SMOKE CIGARETTES?SOME DAYS, BUT NOT EVERY DAY PATIENT COUNSELED ON THE DANGERS OF TOBACCO USE AND URGED TO QUIT:03/04/2017 ARE YOU INTERESTED IN QUITTING?NOT READY TO QUIT COUNSELED THE PATIENT ON SMOKING EFFECTS, EDUCATION [id number]/08/2017 PAIN CLINIC PFS, CLERGY, PUBLIC HEALTH REFERRALS CLERGY REFERRAL NEEDED?NO WAS THE PROVIDER NOTIFIED OF ANY PERTINENT INFO?NO PFS REFERRAL NEEDED?NO PUBLIC HEALTH REFERRAL NEEDED?NO PATIENT: ____. HOSPITALIZATION/MAJOR DIAGNOSTIC PROCEDURE BEHAVIORAL HEALTH 07/2016 BEHAVIORAL HEALTH 08/2016 REVIEW OF SYSTEMS CONSTITUTIONAL: ANY CHANGE IN YOUR MEDICAL CONDITION? NO . CHILLS NO . FEVER NO . INFECTION: DO YOU HAVE NEW INFECTIONS? NO . DO YOU HAVE HISTORY OF MRSA? NO . MUSCULOSKELETAL: ANY NEW PATTERNS OF PAIN OR NUMBNESS? YES, PAIN RIGHT SIDE SINCE DCS WAS IMPLANTED . GASTROENTEROLOGY: ANY NEW CHANGE IN BOWEL CONTROL? NO . GENITOURINARY: ANY NEW CHANGE IN BLADDER CONTROL? NO . IS THERE A CHANCE YOU COULD BE ? NO . HEMATOLOGY/LYMPH: DO YOU TAKE ANY BLOOD THINNERS? (FOR EXAMPLE- COUMADIN, PLAVIX, AGGRENOX, PLATEL, PRADAXA, OR XARELTO) NO . WHEN WAS YOUR LAST DOSE? DATE: TIME: . NEUROLOGY: HAVE YOU FALLEN IN THE PAST 6 MONTHS? NO . ANY NEW EXTREMITY NUMBNESS OR WEAKNESS? NO . CARDIOLOGY: DO YOU HAVE A PACEMAKER OR DEFIBRILLATOR? NO . RESPIRATORY: HAVE YOU BEEN SICK IN THE PAST WEEK? NO . FEVER NO . FLU LIKE SYMPTOMS? NO . COUGH NO . INTEGUMENTARY: DO YOU HAVE ANY RASHES OR OPEN SORES? NO . ALLERGIC/IMMUNO: ARE YOU ALLERGIC TO SHELLFISH OR IV DYE? NO . ANY NEW ALLERGIES? NO . PSYCHIATRIC: DO YOU HAVE THOUGHTS OF HURTING YOURSELF OR SOMEONE ELSE? NO . ARE YOU ABUSED, NEGLECTED, OR IN AN UNSAFE ENVIRONMENT? NO . ENDOCRINOLOGY: ARE YOU DIABETIC? NO . OTHER: DO YOU NEED ANY PRESCRIPTIONS? NO . IF YES, PLEASE LIST: ____ . ANY NEW PROBLEMS WITH YOUR MEDICATIONS? NO . WHEN DID YOU LAST EAT? ____ . WHEN DID YOU LAST DRINK? ____ . WHAT DID YOU LAST DRINK? ____ . NAME OF PERSON DRIVING YOU HOME? ____ . DO YOU HAVE ANY OTHER QUESTIONS OR CONCERNS NO . REVIEWED BY: PROVIDER: ESTEBAN SCHNEIDER MD . VITAL SIGNS WT 208.4 LBS, HT 65 IN, BMI 34.68 INDEX, BP 136/85 MM HG, HR 100 /MIN, RR 16 /MIN, TEMP 98.8 F, OXYGEN SAT % 95%, NA INITIALS AD. EXAMINATION : PATIENT IS ALERT O X 3 AND COOPERATIVE. MR. VILLANUEVA UNABLE TO STRAIGHTEN BACK AND STAYS IN A FLEXED POSITION. PATIENT HAS TENDERNESS IN THE LOWER BACK AND PARASPINAL MUSCLE GROUP AND IN THE CERVICAL AREA AND PARASPINAL MUSCLE GROUP. BANDS OF TISSUE, RESTRICTION OF MOVEMENT, AND PRESENCE OF TRIGGER POINTS IN THE BACK. ALSO TENDERNESS AT THE RIGHT AND LEFT SACROILIAC JOINTS. LEFT LEG IS WEAKER THEN THE RIGHT AT EXTENSION AND FLEXION. MRI OF CERVICAL SPINE ON 12/12/14 SHOW DISC PROTRUSIONS AND STENOSIS AT C5-C6 AND C6-C7. MRI OF THE LUMBAR SPINE DONE ON 03/08/16 SHOW DISC BULGE AT L4-L5. INCISION PINK, NO SIGN OF INFECTION. ASSESSMENTS INTERVERTEBRAL DISC DISORDERS WITH RADICULOPATHY, LUMBAR REGION - M51.16 (PRIMARY) TREATMENT INTERVERTEBRAL DISC DISORDERS WITH RADICULOPATHY, LUMBAR REGION NOTES: WE DISCUSSED SEVERAL ISSUES WITH MR. VILLANUEVA'S PAIN MANAGEMENT CASE. AT THIS TIME THE PATIENT WILL CONTINUE TO USE THE HYDROCODONE FOR THE SIDE PAIN. PATIENT STATES HE DOES NOT WANT MORE MEDICATION AT THIS TIME. MR. VILLANUEVA WAS ADVISED TO CONTINUE TO REST AND AVOID BENDING, LIFTING, AND TWISTING TO AVOID LEAD MIGRATION. PATIENT WILL RETURN TO THE CLINIC AT THE END OF MONTH FOR AN EVALUATION ON THE DCS. INSTRUCTIONS WERE GIVEN, QUESTIONS WERE ANSWERED, PATIENT REPORTS UNDERSTANDING AND AGREES WITH THE PLAN. I, KANDI OWENS, DOCUMENTED THE ABOVE INFORMATION ACTING A SCRIBE FOR DR. SCHNEIDER. I HAVE REVIEWED THE ABOVE DOCUMENT, WRITTEN BY KANDI BE AND I VERIFY THAT IT IS ACCURATE. PROCEDURE CODES FA211 ESTABILISHED PATIENT [facility] FACILITY CHARGE M5306 DOC MEDS VERIFIED W/PT OR RE [id number] PAIN ASSESS POS TOOL F/U PLAN DOC DISPOSITION & COMMUNICATION FOLLOW UP 2 WEEKS ELECTRONICALLY SIGNED BY ESTEBAN SCHNEIDER MD ON 03/10/2017 AT 01:39 PM EDT DISCLAIMER : THIS IS A VISIT SUMMARY EXTRACTED FROM THE [employer] CHART. IT IS NOT A COPY OF THE [employer] PROGRESS NOTE. BRYON
== END ==
LOC: M PAIN 13:40
PROVIDERS: ATTEND Anesthesiology
DX: G89.29 Other chronic pain (principal); M51.16 Intervertebral disc disorders with radiculopathy, lumbar region; I10 Essential (primary) hypertension; G47.30 Sleep apnea, unspecified; F43.10 Post-traumatic stress disorder, unspecified; F41.9 Anxiety disorder, unspecified; F33.9 Major depressive disorder, recurrent, unspecified; Z79.899 Other long term (current) drug therapy; F17.210 Nicotine dependence, cigarettes, uncomplicated

== ENCOUNTER → 2017-03-20 | Outpatient (CLI) | payer OTHER ==
--- NOTE | 2017-04-03 02:02 | ECWPNPC ---
PATIENT NAME: ALLY VILLANUEVA : 1975 GENDER: MALE VISIT DATE: 03/20/2017 DISCHARGE DATE: 03/20/17 1357 VISIT LOCKED DATE TIME: PHYSICIAN: ESTEBAN SCHNEIDER RESOURCE: ESTEBAN SCHNEIDER REASON FOR APPOINTMENT 1. DCS CHECK UP HISTORY OF PRESENT ILLNESS HISTORY OF PRESENT ILLNESS: PAIN THE PATIENT DESCRIBES THE PAIN... 41 YEAR OLD MALE PATIENT WITH HISTORY OF CHRONIC LOW BACK PAIN. PATIENT DESCRIBES THE PAIN BURNING, STABBING, AND HAVING IT ALL THE TIME WITH A PAIN SCORE OF 4/10 ON TODAY'S VISIT. PATIENT HAD A DCS PERMANENT PUT IN ON 02/18/2017 AND STATES THAT THE DCS IS PROVIDING GOOD PAIN RELIEF WITH THE PAIN DOWN THE LEGS. PATIENT STATES THAT HE STILL HAS POST SURGICAL PAIN AND DISCOMFORT IN HIS BACK. PATIENT DENIES UNEXPLAINABLE WEIGHT LOSS, FEVER, CHILLS, NEW CHANGES ON HIS URINARY OR BOWEL CONTROL. FALL RISK SCREENING: SCREENING :NO FALLS IN THE PAST YEAR CURRENT MEDICATIONS TAKING PRAZOSIN HCL 5 MG CAPSULE 2 CAPSULES ORALLY ONCE A DAY AT BEDTIME TAKING LISINOPRIL 10 MG TABLET ORALLY DAILY TAKING SEROQUEL 100 MG TABLET 2 TABLETS AT BEDTIME ORALLY ONCE A DAY TAKING SONATA 10 MG CAPSULE 1 CAPSULE AT BEDTIME NEEDED ORALLY ONCE A DAY TAKING VISTARIL 50 MG CAPSULE 2 CAPSULES NEEDED ORALLY EVERY 6 NEEDED TAKING TRINTELLIX 20 MG TABLET 1 TABLET ORALLY ONCE A DAY NOT-TAKING HYDROCODONE-ACETAMINOPHEN 5-325 MG TABLET 1 TABLET NEEDED ORALLY EVERY 4 HRS NOT-TAKING GABAPENTIN 600 MG TABLET 2 TABLETS ORALLY TWICE A DAY- ER NOT-TAKING KEFLEX 500 MG CAPSULE 1 CAPSULE ORALLY THREE TIMES DAILY NOT-TAKING LEXAPRO 10 MG TABLET 1 TABLET ORALLY ONCE A DAY NOT-TAKING CYMBALTA 60 MG CAPSULE DELAYED RELEASE PARTICLES 1 1/2CAPSULE ORALLY ONCE A DAY 90 MG NOT-TAKING CELEBREX 200 MG CAPSULE 1 CAPSULE ORALLY ONCE A DAY FOR PAIN NOT-TAKING TIZANIDINE HCL 2 MG TABLET 1 TABLET NEEDED ORALLY FOR SPASMSM AND PAIN THREE TIMES A DAY MEDICATION LIST REVIEWED AND RECONCILED WITH THE PATIENT PAST MEDICAL HISTORY HTN 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 SURGICAL HISTORY DCS TRIAL PERMANENT DCS 01/2017 FAMILY HISTORY NO FAMILY HISTORY DOCUMENTED. SOCIAL HISTORY GENERAL: TOBACCO USE ARE YOU A:CURRENT SMOKER HOW MANY CIGARETTES A DAY DO YOU SMOKE?5 OR LESS HOW SOON AFTER YOU WAKE UP DO YOU SMOKE YOUR FIRST CIGARETTE?6-30 MIN HOW OFTEN DO YOU SMOKE CIGARETTES?SOME DAYS, BUT NOT EVERY DAY PATIENT COUNSELED ON THE DANGERS OF TOBACCO USE AND URGED TO QUIT:03/04/2017 ARE YOU INTERESTED IN QUITTING?NOT READY TO QUIT COUNSELED THE PATIENT ON SMOKING EFFECTS, EDUCATION [id number]/08/2017 PAIN CLINIC PFS, CLERGY, PUBLIC HEALTH REFERRALS CLERGY REFERRAL NEEDED?NO WAS THE PROVIDER NOTIFIED OF ANY PERTINENT INFO?NO PFS REFERRAL NEEDED?NO PUBLIC HEALTH REFERRAL NEEDED?NO PATIENT: ____. HOSPITALIZATION/MAJOR DIAGNOSTIC PROCEDURE BEHAVIORAL HEALTH 07/2016 BEHAVIORAL HEALTH 08/2016 REVIEW OF SYSTEMS CONSTITUTIONAL: ANY CHANGE IN YOUR MEDICAL CONDITION? NO . CHILLS NO . FEVER NO . INFECTION: DO YOU HAVE NEW INFECTIONS? NO . DO YOU HAVE HISTORY OF MRSA? NO . MUSCULOSKELETAL: ANY NEW PATTERNS OF PAIN OR NUMBNESS? YES. PT STATES DORSAL COLUMN STIMULATOR PLACED 01/2017. PT STATES PAIN WAS 8/10 PRE PROCEDURAL. PT STATES POST PROCEDURE 02/04, PT C/O SURGICAL INCISIONAL PAIN. . GASTROENTEROLOGY: ANY NEW CHANGE IN BOWEL CONTROL? NO . GENITOURINARY: ANY NEW CHANGE IN BLADDER CONTROL? NO . IS THERE A CHANCE YOU COULD BE ? NO . HEMATOLOGY/LYMPH: DO YOU TAKE ANY BLOOD THINNERS? (FOR EXAMPLE- COUMADIN, PLAVIX, AGGRENOX, PLATEL, PRADAXA, OR XARELTO) NO . WHEN WAS YOUR LAST DOSE? DATE: TIME: . NEUROLOGY: HAVE YOU FALLEN IN THE PAST 6 MONTHS? NO . ANY NEW EXTREMITY NUMBNESS OR WEAKNESS? NO . CARDIOLOGY: DO YOU HAVE A PACEMAKER OR DEFIBRILLATOR? NO . RESPIRATORY: HAVE YOU BEEN SICK IN THE PAST WEEK? NO . FEVER NO . FLU LIKE SYMPTOMS? NO . COUGH NO . INTEGUMENTARY: DO YOU HAVE ANY RASHES OR OPEN SORES? NO . ALLERGIC/IMMUNO: ARE YOU ALLERGIC TO SHELLFISH OR IV DYE? NO . ANY NEW ALLERGIES? NO . PSYCHIATRIC: DO YOU HAVE THOUGHTS OF HURTING YOURSELF OR SOMEONE ELSE? NO . ARE YOU ABUSED, NEGLECTED, OR IN AN UNSAFE ENVIRONMENT? NO . ENDOCRINOLOGY: ARE YOU DIABETIC? NO . OTHER: DO YOU NEED ANY PRESCRIPTIONS? NO . IF YES, PLEASE LIST: ____ . ANY NEW PROBLEMS WITH YOUR MEDICATIONS? NO . WHEN DID YOU LAST EAT? ____ . WHEN DID YOU LAST DRINK? ____ . WHAT DID YOU LAST DRINK? ____ . NAME OF PERSON DRIVING YOU HOME? ____ . DO YOU HAVE ANY OTHER QUESTIONS OR CONCERNS NO . REVIEWED BY: PROVIDER: ESTEBAN SCHNEIDER MD . VITAL SIGNS WT 200.0 LBS, HT 65 IN, BMI 33.28 INDEX, BP 129/76 MM HG, HR 89 /MIN, RR 16 /MIN, TEMP 98.7 F, OXYGEN SAT % 98%, SAFE IN ENV? (Y/N) Y, NA INITIALS TL 1306, REVIEWED BY: EM. EXAMINATION : PATIENT IS ALERT O X 3 AND COOPERATIVE. NO SIGNS OF INFECTION ON THE SURGICAL SITE. MRI OF CERVICAL SPINE ON 12/12/14 SHOW DISC PROTRUSIONS AND STENOSIS AT C5-C6 AND C6-C7. MRI OF THE LUMBAR SPINE DONE ON 03/08/16 SHOW DISC BULGE AT L4-L5. INCISION PINK, NO SIGN OF INFECTION. ASSESSMENTS INTERVERTEBRAL DISC DISORDERS WITH RADICULOPATHY, LUMBAR REGION - M51.16 (PRIMARY) TREATMENT INTERVERTEBRAL DISC DISORDERS WITH RADICULOPATHY, LUMBAR REGION NOTES: WE DISCUSSED SEVERAL ISSUES WITH MR. VILLANUEVA'S PAIN MANAGEMENT CASE. AT THIS TIME I WILL EXTEND THE OUT OF WORK TIME FOR MR. VILLANUEVA, HE CAN GO BACK TO WORK ON 04/08/2017. PATIENT WILL FOLLOW UP WITH ME IN 1 MONTH. INSTRUCTIONS WERE GIVEN, QUESTIONS WERE ANSWERED, PATIENT REPORTS UNDERSTANDING AND AGREES WITH THE PLAN. I, SHAREE GUERRERO, DOCUMENTED THE ABOVE INFORMATION ACTING A SCRIBE FOR DR. SCHNEIDER. I HAVE REVIEWED THE ABOVE DOCUMENT, WRITTEN BY SHAREE BRARIBJas AND I VERIFY THAT IT IS ACCURATE. PROCEDURE CODES FA211 ESTABILISHED PATIENT [facility] FACILITY CHARGE G8730 PAIN ASSESS POS TOOL F/U PLAN DOC G8427 DOC MEDS VERIFIED W/PT OR RE DISPOSITION & COMMUNICATION FOLLOW UP 3 WEEKS ELECTRONICALLY SIGNED BY ESTEBAN SCHNEIDER MD ON 04/02/2017 AT 05:56 PM EDT DISCLAIMER : THIS IS A VISIT SUMMARY EXTRACTED FROM THE [employer] CHART. IT IS NOT A COPY OF THE [employer] PROGRESS NOTE. MTDD
== END | disposition home or self-care (01) ==
LOC: M PAIN 13:00
PROVIDERS: ATTEND Anesthesiology
DX: G89.29 Other chronic pain (principal); M51.16 Intervertebral disc disorders with radiculopathy, lumbar region; I10 Essential (primary) hypertension; G47.30 Sleep apnea, unspecified; F41.9 Anxiety disorder, unspecified; F33.9 Major depressive disorder, recurrent, unspecified; F43.10 Post-traumatic stress disorder, unspecified; Z79.899 Other long term (current) drug therapy; F17.210 Nicotine dependence, cigarettes, uncomplicated

== ENCOUNTER → 2017-04-18 | Outpatient (CLI) | payer OTHER ==
--- NOTE | 2017-04-23 23:41 | ECWPNPC ---
PATIENT NAME: ALLY VILLANUEVA : 1975 GENDER: MALE VISIT DATE: 04/18/2017 DISCHARGE DATE: 04/18/17 1422 VISIT LOCKED DATE TIME: PHYSICIAN: EMILEE HOWARD RESOURCE: EMILEE HOWARD HISTORY OF PRESENT ILLNESS HISTORY OF PRESENT ILLNESS: HERE FOR F/U AND MANAGEMENT OF CHRONIC LOW BACK PAIN WITH DCS PLACEMENT IN JANUARY-[address] SCHNEIDER .DOING WELL.RATING PAIN VAS 3/10.HAVING PERSISTENT TAILBONE PAIN THAT IS UNCHANGED SINCE INITIAL VISIT TO PAIN CENTER.DISCUSSED TRYING TO REPROGRAM WITH ELEAZAR FROM [employer] AT HIS NEXT APPOINTMENT. PAIN THE PATIENT DESCRIBES THE PAIN... FALL RISK SCREENING: SCREENING :NO FALLS IN THE PAST YEAR CURRENT MEDICATIONS TAKING PRAZOSIN HCL 5 MG CAPSULE 2 CAPSULES ORALLY ONCE A DAY AT BEDTIME TAKING LISINOPRIL 10 MG TABLET ORALLY DAILY TAKING SEROQUEL 100 MG TABLET 2 TABLETS AT BEDTIME ORALLY ONCE A DAY TAKING SONATA 10 MG CAPSULE 2 CAPSULE AT BEDTIME NEEDED ORALLY ONCE A DAY TAKING VISTARIL 50 MG CAPSULE 2 CAPSULES NEEDED ORALLY EVERY 6 NEEDED TAKING TRINTELLIX 20 MG TABLET 1 TABLET ORALLY ONCE A DAY NOT-TAKING HYDROCODONE-ACETAMINOPHEN 5-325 MG TABLET 1 TABLET NEEDED ORALLY EVERY 4 HRS NOT-TAKING GABAPENTIN 600 MG TABLET 2 TABLETS ORALLY TWICE A DAY- ER NOT-TAKING KEFLEX 500 MG CAPSULE 1 CAPSULE ORALLY THREE TIMES DAILY NOT-TAKING LEXAPRO 10 MG TABLET 1 TABLET ORALLY ONCE A DAY NOT-TAKING CYMBALTA 60 MG CAPSULE DELAYED RELEASE PARTICLES 1 1/2CAPSULE ORALLY ONCE A DAY 90 MG NOT-TAKING CELEBREX 200 MG CAPSULE 1 CAPSULE ORALLY ONCE A DAY FOR PAIN NOT-TAKING TIZANIDINE HCL 2 MG TABLET 1 TABLET NEEDED ORALLY FOR SPASMSM AND PAIN THREE TIMES A DAY MEDICATION LIST REVIEWED AND RECONCILED WITH THE PATIENT PAST MEDICAL HISTORY HTN 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 SURGICAL HISTORY DCS TRIAL PERMANENT DCS 01/2017 HOSPITALIZATION/MAJOR DIAGNOSTIC PROCEDURE BEHAVIORAL HEALTH 07/2016 BEHAVIORAL HEALTH 08/2016 REVIEW OF SYSTEMS REVIEWED BY: PROVIDER: EMILEE MOORE . CONSTITUTIONAL: ANY CHANGE IN YOUR MEDICAL CONDITION? NO . CHILLS NO . FEVER NO . INFECTION: DO YOU HAVE NEW INFECTIONS? NO . DO YOU HAVE HISTORY OF MRSA? NO . MUSCULOSKELETAL: ANY NEW PATTERNS OF PAIN OR NUMBNESS? NO . GASTROENTEROLOGY: ANY NEW CHANGE IN BOWEL CONTROL? NO . GENITOURINARY: ANY NEW CHANGE IN BLADDER CONTROL? NO . IS THERE A CHANCE YOU COULD BE ? NO . HEMATOLOGY/LYMPH: DO YOU TAKE ANY BLOOD THINNERS? (FOR EXAMPLE- COUMADIN, PLAVIX, AGGRENOX, PLATEL, PRADAXA, OR XARELTO) NO . WHEN WAS YOUR LAST DOSE? DATE: TIME: . NEUROLOGY: HAVE YOU FALLEN IN THE PAST 6 MONTHS? NO . ANY NEW EXTREMITY NUMBNESS OR WEAKNESS? NO . CARDIOLOGY: DO YOU HAVE A PACEMAKER OR DEFIBRILLATOR? NO . RESPIRATORY: HAVE YOU BEEN SICK IN THE PAST WEEK? NO . FEVER NO . FLU LIKE SYMPTOMS? NO . COUGH NO . INTEGUMENTARY: DO YOU HAVE ANY RASHES OR OPEN SORES? NO . ALLERGIC/IMMUNO: ARE YOU ALLERGIC TO SHELLFISH OR IV DYE? NO . ANY NEW ALLERGIES? NO . PSYCHIATRIC: DO YOU HAVE THOUGHTS OF HURTING YOURSELF OR SOMEONE ELSE? NO . ARE YOU ABUSED, NEGLECTED, OR IN AN UNSAFE ENVIRONMENT? NO . ENDOCRINOLOGY: ARE YOU DIABETIC? NO . OTHER: DO YOU NEED ANY PRESCRIPTIONS? NO . IF YES, PLEASE LIST: ____ . ANY NEW PROBLEMS WITH YOUR MEDICATIONS? NO . WHEN DID YOU LAST EAT? ____ . WHEN DID YOU LAST DRINK? ____ . WHAT DID YOU LAST DRINK? ____ . NAME OF PERSON DRIVING YOU HOME? ____ . DO YOU HAVE ANY OTHER QUESTIONS OR CONCERNS NO . VITAL SIGNS WT 210.6 LBS, HT 65 IN, BMI 35.04 INDEX, BP 139/88 MM HG, HR 74 /MIN, RR 16 /MIN, TEMP 97.5 F, OXYGEN SAT % 96%, SAFE IN ENV? (Y/N) Y, NA INITIALS TL 1347, REVIEWED BY: EM. EXAMINATION GENERAL EXAMINATION: LUNGS:LUNG SOUNDS ARE CLEAR. HEART:HEART RATE REGULAR. MUSCULOSKELETAL:*, MUSCLE STRENGTH TESTING 5/5 BILATERAL LOWER EXTREMITIES.WELL HEALED DCS INCISION L/S SPINE AND RIGHT LUMBAR PARASPINAL REGION.NONTENDER. 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 IT IS NOT A COPY OF THE [employer] PROGRESS NOTE. BRYON
== END | disposition home or self-care (01) ==
LOC: M PAIN 14:20
PROVIDERS: ATTEND Nurse Practitioner Family
DX: G89.29 Other chronic pain (principal); M79.1 Myalgia; M46.1 Sacroiliitis, not elsewhere classified; I10 Essential (primary) hypertension; G54.0 Brachial plexus disorders; F43.10 Post-traumatic stress disorder, unspecified; F41.9 Anxiety disorder, unspecified; F33.9 Major depressive disorder, recurrent, unspecified; Z79.899 Other long term (current) drug therapy

== ENCOUNTER → 2020-07-06 | Outpatient (CLI) | payer OTHER ==
[~2020-07-06] MED LIST changes: +BRIN10TA4 PO; -BRIN1TAB2 PO; -GABA600T PO; +GABA600T4 PO; +HYDR1TAB33 PO; -HYDRO50TAB PO; +LUNE3TAB36 PO; -LUNE3TAB48 PO; +OXYC-1 PO; -OXYC15TA76 PO; +SONA10CA23 PO; -SONA10CA6 PO
--- NOTE | 2020-07-18 11:15 | REP ---
LIVER ULTRASOUND CLINICAL: Right upper quadrant pain. TECHNIQUE: Real-time blanchard scale ultrasound examination using curved array transducer. FINDINGS: Liver and visualized pancreas are normal in contour, size, and echogenicity without focal hepatic or pancreatic lesion identified. The gallbladder appears contracted without obvious gallstones or pericholecystic fluid. No biliary ductal dilatation is appreciated and the common bile duct measures 3.7 mm in diameter. Right kidney is normal in reniform shape and measures 10.6 x 6.4 x 5.4 cm with a 3.7 x 2.2 x 3.1 cm cyst at the lower pole. There is no evidence for hydronephrosis or nephrolithiasis. No ascites in the visualized right upper quadrant. IMPRESSION: 1. Contracted appearing gallbladder. 2. Normal appearance to the liver. 3. Right renal cyst. MTDD
== END ==
LOC: M RAD 06:02
PROVIDERS: ATTEND Physician Assistant Medical
DX: N28.1 Cyst of kidney, acquired (principal); R10.11 Right upper quadrant pain

== ENCOUNTER → 2022-06-13 | Outpatient (CLI) | payer OTHER ==
[~2022-06-13] MED LIST changes: +LISI10TA22 PO; -LISI10TA4 PO; +TRAZ-189 PO
== END ==
LOC: M LABSMTC 09:20
PROVIDERS: ATTEND Anesthesiology
DX: Z11.52 Encounter for screening for COVID-19 (principal)

== ENCOUNTER 2022-06-18 07:39 | Day surgery (SDC) | payer OTHER ==
[~2022-06-18] VITALS: Ht 167.6 cm; Wt 85.7 kg
[~2022-06-18 07:39] MED LIST changes: +NS 1,000 ML IV ONE
[2022-06-18] MEDS ORDERED: propofoL 200 MG/20 ML VIAL As Ordered ONE ×2 (07:42→10:15)
[2022-06-18] MEDS ORDERED: LIDOCAINE 2% 100MG/5ML SDV (FOR ANES.) As Ordered ONE (07:42)
[2022-06-18] MEDS ORDERED: TUMS500C PO (07:59)
[2022-06-18 10:10] VITALS: BP 103/71
== END 2022-06-18 10:22 | disposition home or self-care (01) ==
LOC: M OPP 07:39
PROVIDERS: ATTEND Internal Medicine Gastroenterology
DX: Z12.11 Encounter for screening for malignant neoplasm of colon (principal); K63.5 Polyp of colon; D12.6 Benign neoplasm of colon, unspecified; K57.30 Diverticulosis of large intestine without perforation or abscess without bleeding; K64.0 First degree hemorrhoids; K22.89 Other specified disease of esophagus; G47.33 Obstructive sleep apnea (adult) (pediatric); F41.9 Anxiety disorder, unspecified; F43.10 Post-traumatic stress disorder, unspecified; F32.9 Major depressive disorder, single episode, unspecified; I10 Essential (primary) hypertension; Z79.899 Other long term (current) drug therapy; Z87.891 Personal history of nicotine dependence